=== PATIENT | male | born 1940 | race Caucasian/White ===

== ENCOUNTER 2017-07-03 14:26 | Inpatient (IN) ==
[2017-07-03] MEDS ORDERED: Ipratropium/Albuterol Neb 3 ML IH ONE (14:39)
[2017-07-03] MEDS ORDERED: methylPREDNISolone 125 MG/2 ML VIAL IVP ONE (14:39)
--- NOTE | 2017-07-03 14:41 | Emergency Department Note ---
Disposition Clinical Impression: COPD exacerbation, Pleural effusion Lung cancer Qualifiers: Laterality: unspecified laterality Lung location: unspecified part of lung Qualified Code(s): C34.90 - Malignant neoplasm of unspecified part of unspecified bronchus or lung Disposition: Admitted As Inpatient Condition: Serious Referrals: Byron Mane MD [Primary Care Provider] - Forms: ED Satisfaction Letter Time of Disposition: 15:41 Altered Mental Status HPI - General Chief Complaint: ED Altered Mental Status Stated Complaint: AMS X3days Time Seen by Provider: 07/03/17 14:31 Source: family Mode of arrival: ambulatory Limitations: altered mental status Nursing Notes Reviewed: Yes Vital Signs Reviewed: Yes - History of Present Illness HPI Narrative: 76-year-old with history of lung cancer that says now spread to his liver who apparently had some altered mental status today with increased confusion. Patient has a moist cough and his wheezing had a pulse ox of 66% at home. 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 Immediately on arrival I did discuss with the and patient whether he would want to be intubated if his respirations with declined and he indicated he would. 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 confirmed by: spouse Pain Severity: moderate Context: cancer (Anesthetic small cell lung cancer) - Related Data Home Medications Medication Instructions Recorded Confirmed Aspirin Enteric Coated [Aspirin EC] 81 mg PO DAILY 10/16/16 06/12/17 Atenolol [Tenormin] 50 mg PO DAILY 10/16/16 06/12/17 Cholecalciferol (Vitamin D3) 2,000 unit PO DAILY 10/16/16 06/12/17 [Vitamin D3] Docusate [Colace] 100 mg PO DAILY PRN 10/16/16 06/12/17 Fesoterodine Fumarate [Toviaz] 8 mg PO DAILY 10/16/16 06/12/17 Fluticasone Propionate [Flovent 1 puff IH BID 10/16/16 06/12/17 Hfa] HYDROcodone/Acet 5/325 mg [[place] 1 tab PO Q6H PRN 10/16/16 06/12/17 5-325 mg] Lisinopril [Zestril] 10 mg PO QPM 10/16/16 06/12/17 Lisinopril [Zestril] 20 mg PO QAM 10/16/16 06/12/17 Metformin HCl [Metformin HCl ER] 750 mg PO BID 10/16/16 06/12/17 Multivitamin [Multi-Day Vitamins] 1 each PO DAILY 10/16/16 06/12/17 Oxygen 2 l NS CONT 10/16/16 06/12/17 Simvastatin [Zocor] 40 mg PO QPM 10/16/16 06/12/17 hydroCHLOROthiazide 25 mg PO DAILY 10/16/16 06/12/17 [Hydrochlorothiazide] Amlodipine Besylate 2.5 mg PO DAILY 02/21/17 06/12/17 Trospium Chloride [Trospium 20 mg PO QPM 02/21/17 06/12/17 Chloride] Polyethylene Glycol 3350 [MiraLAX] 17 gm PO DAILY PRN 04/26/17 06/12/17 Potassium Chloride Elixir 10 meq PO DAILY 04/26/17 06/12/17 [Potassium Chloride] Gluc 2Kcl/Chondr/Kathy Hy/Hy AC 2 each PO DAILY 04/30/17 06/12/17 [Glucosamine & Chondroitin Cap] Previous Rx's Medication Instructions Recorded Furosemide [Lasix] 20 mg PO DAILY PRN #30 tablet 04/02/17 Levothyroxine [Synthroid] 37.5 mcg PO QAM #45 tablet 05/01/17 Loperamide [Imodium] 2 mg PO AD #60 capsule 06/12/17 Allergies Allergy/AdvReac Type Severity Reaction Status Date / Time steroids Allergy Severe Difficulty Uncoded 06/12/17 15:59 Breathing All systems ED: reviewed and negative except as stated. Constitutional: Denies: fever, chills, weakness, weight change Eyes: Denies: eye pain, eye discharge, vision change ENT ED: Denies: ear pain, throat pain, dental pain, hearing loss, epistaxis, congestion, dysphagia Cardiovascular: Denies: chest pain, palpitations, dyspnea on exertion, edema, syncope Respiratory: Reports: cough, dyspnea, wheezes. Denies: hemoptysis, stridor Gastrointestinal: Denies: abdominal pain, nausea, vomiting, diarrhea, constipation, hematemesis, melena, hematochezia Genitourinary: Denies: urgency, dysuria, frequency, hematuria Musculoskeletal: Denies: back pain, neck pain, arthralgia, myalgia Integumentary: Denies: rash, abrasion, lesions Neurological: Denies: headache, weakness, numbness, paresthesias, confusion, abnormal gait, vertigo Psychiatric: Denies: anxiety, depression, suicidal thoughts, homicidal thoughts , auditory hallucinations, visual hallucinations Endocrine: Denies: fatigue Hematological/Lymphatic: Denies: easy bleeding, easy bruising Allergic/Immunologic: Denies: facial swelling, urticaria Past Medical History - Past Medical History Medical history: Reports: arthritis, cancer, diabetes, hyperlipidemia, hypertension Surgical history: Reports: LE vascular intervention, vascular surgery Psychiatric history: Reports: no psych history - Social History Smoking Status: Former smoker Smokeless Tobacco Status: No Alcohol use: Reports: none Drug use: Reports: none Physical Exam - General General appearance: alert - Head Head exam: atraumatic, normocephalic, normal inspection - Eye Eye exam: Present: normal appearance, PERRL, EOMI - ENT ENT exam: normal exam, normal oropharynx, mucous membranes moist - Neck Neck exam: Present: normal inspection, full ROM, trachea midline - Chest Chest inspection: Present: normal inspection, symmetric chest wall rise - Respiratory Respiratory exam: Present: wheezes, prolonged expiratory phase, other (Rhonchi rales) - Cardiovascular Cardiovascular exam: Present: regular rate, normal rhythm, normal heart sounds - Abdominal Exam Abdominal exam: Present: soft, Non-Tender. Absent: tenderness, distention, guarding, rebound, rigidity - Extremities Exam Extremities exam: Present: normal inspection, full ROM. Absent: tenderness, pedal edema - Expanded Lower Extremity Exam Neurovascular/Tendon exam: Absent: motor deficit, sensory deficit, tendon deficit Gait: observed and normal - Back Exam Back exam: Present: normal inspection, full ROM. Absent: tenderness - Neurological Exam Neurological exam: Present: alert, oriented X3 - Psychiatric Psychiatric exam: Present: normal affect, normal mood - Skin Skin exam: Present: warm, dry, intact, normal color Course - Reevaluation(s) Reevaluation #1: 76-year-old male with a history of his metastatic small cell carcinoma comes in with altered mental status and difficulty breathing. Patient was treated with breathing treatments oxygen and his pulse ox came up to the mid 90s. At this point time is awake alert. Currently the family wants the patient to be a full code. Time: 16:58 - Consultations Consultation #2: Discussed with Dr. Renae cardiology who requested an echocardiogram. Time: 16:00 Consultation #3: Discussed with Samira Christian, admit Time: 17:06 Vital Signs Temperature 97.9 F 07/03/17 14:32 Pulse Rate 78 07/03/17 14:32 Respiratory Rate 16 07/03/17 14:32 Blood Pressure 133/68 07/03/17 14:32 O2 Sat by Pulse Oximetry 86 07/03/17 14:32 Temperature 97.9 F 07/03/17 14:32 Pulse Rate 73 07/03/17 15:36 Respiratory Rate 20 07/03/17 15:36 Blood Pressure 146/110 07/03/17 15:36 O2 Sat by Pulse Oximetry 97 07/03/17 15:36 Oxygen Delivery Oxygen Delivery Non Rebreather Mask Altered Mental Status - Lab Data Lab results reviewed: Yes I reviewed the patient's lab results. Result diagrams: 07/03/17 14:56 07/03/17 14:56 Lab Results 07/03/17 07/03/17 07/03/17 Range/Units 14:44 14:56 14:56 WBC 7.7 (4.3-11.1) K/mcL RBC 3.36 L (4.19-5.50) M/mcL Hgb 10.1 L (12.9-16.9) g/dL Hct 33.7 L (37.5-50.1) % MCV 100.3 H (83.0-100.0) fL MCH 30.1 (28.0-33.3) pg MCHC 30.0 L (31.6-35.5) g/dL RDW 16.1 H (11.5-14.5) % Plt Count 164 (140-400) K/mcL MPV 8.7 L (9.4-12.4) fL Immature Gran % 1.8 (0-4) % Seg Neutrophils % 84.2 % Lymphocytes % 5.7 % Monocytes % 7.9 % Eosinophils % 0.3 % Basophils % 0.1 % Neutrophils # 6.5 (1.6-8.9) K/mcL Lymphocytes # 0.4 L (0.6-4.6) K/mcL Monocytes # 0.6 (0.0-1.3) K/mcL Eosinophils # 0.0 (0.0-0.6) K/mcL Basophils # 0.0 (0.0-0.2) K/mcL Nucleated RBCs/100 WBC 0.4 H (0) /100 WBC PT 13.5 H (9.4-12.1) Seconds INR 1.2 APTT 28.8 (26.0-36.0) Seconds ABG pH 7.36 (7.32-7.45) pH Units ABG pCO2 78 H* (35-45) mmHg ABG pO2 108 H (85-104) mmHg ABG HCO3 44.1 H (21-27) mEQ/L ABG Total CO2 46.5 H (20-26) mEq/L ABG O2 Saturation 98 (95-98) % ABG Base Excess 15.3 H (-2.0 to 3.0) mEq/L Blood Gas Modality [place] Inspired O2 40 % Sodium (136-145) mEq/L Potassium (3.5-4.5) mEq/L Chloride (98-109) mEq/L Carbon Dioxide (19-29) mEq/L BUN (8-26) mg/dL Creatinine (0.72-1.25) mg/dL Est GFR ( Amer) (> 60) Est GFR (Non-Af Amer) (> 60) BUN/Creatinine Ratio (6-26) Glucose (70-99) mg/dL Calculated Osmolality (280-300) Calcium (8.6-10.8) mg/dL Total Bilirubin (0.2-1.2) mg/dL Direct Bilirubin (0.0-0.5) mg/dL Indirect Bilirubin (0.0-1.2) mg/dL AST (5-34) Units/L ALT (0-55) Units/L Alkaline Phosphatase (38-126) Units/L Troponin I (0-0.03) ng/mL Serum Total Protein (6.0-8.3) g/dL Albumin (3.5-5.0) g/dL Globulin (2.4-3.5) g/dL Albumin/Globulin Ratio (1.1-2.2) Urine Color (Yellow) Urine Clarity (Clear) Urine pH (5.0-8.0) pH Units Ur Specific [place] (1.010-1.025) Urine Protein (Neg-Trace) mg/dL Urine Glucose (UA) (Normal) mg/dL Urine Ketones (Negative) mg/dL Urine Blood (Negative) Urine Nitrite (Negative) Urine Bilirubin (Negative) Urine Urobilinogen (Normal) mg/dL Ur Leukocyte Esterase (Negative) Urine Microscopic RBC (0-3) per hpf Urine Microscopic WBC (0-3) per hpf Ur Squamous Epith Cells (None-Few) per lpf Urine Bacteria (None-Few) per hpf Hyaline Casts (None-Few) per lpf Ur Culture Indicated? (NO) Urine Opiates Screen (Ltzzxv=675) ng/mL Ur Barbiturates Screen (Kxwaru=658) ng/mL Ur Phencyclidine Scrn (Cutoff=25) ng/mL Ur Amphetamines Screen (Tuuedg=6077) ng/mL U Benzodiazepines Scrn (Jwhqep=584) ng/mL Urine Cocaine Screen (Cutoff= 300) ng/mL U Marijuana (THC) Screen (Cutoff = 50) ng/mL Ethyl Alcohol (0-10) mg/dL 07/03/17 07/03/17 07/03/17 Range/Units 14:56 14:56 16:24 WBC (4.3-11.1) K/mcL RBC (4.19-5.50) M/mcL Hgb (12.9-16.9) g/dL Hct (37.5-50.1) % MCV (83.0-100.0) fL MCH (28.0-33.3) pg MCHC (31.6-35.5) g/dL RDW (11.5-14.5) % Plt Count (140-400) K/mcL MPV (9.4-12.4) fL Immature Gran % (0-4) % Seg Neutrophils % % Lymphocytes % % Monocytes % % Eosinophils % % Basophils % % Neutrophils # (1.6-8.9) K/mcL Lymphocytes # (0.6-4.6) K/mcL Monocytes # (0.0-1.3) K/mcL Eosinophils # (0.0-0.6) K/mcL Basophils # (0.0-0.2) K/mcL Nucleated RBCs/100 WBC (0) /100 WBC PT (9.4-12.1) Seconds INR APTT (26.0-36.0) Seconds ABG pH (7.32-7.45) pH Units ABG pCO2 (35-45) mmHg ABG pO2 (85-104) mmHg ABG HCO3 (21-27) mEQ/L ABG Total CO2 (20-26) mEq/L ABG O2 Saturation (95-98) % ABG Base Excess (-2.0 to 3.0) mEq/L Blood Gas Modality Inspired O2 % Sodium 143 (136-145) mEq/L Potassium 3.5 (3.5-4.5) mEq/L Chloride 94 L (98-109) mEq/L Carbon Dioxide 42 H* (19-29) mEq/L BUN 30 H (8-26) mg/dL Creatinine 1.11 (0.72-1.25) mg/dL Est GFR ( Amer) > 60 (> 60) Est GFR (Non-Af Amer) > 60 (> 60) BUN/Creatinine Ratio 27 H (6-26) Glucose 176 H (70-99) mg/dL Calculated Osmolality 306 H (280-300) Calcium 9.6 (8.6-10.8) mg/dL Total Bilirubin 0.5 (0.2-1.2) mg/dL Direct Bilirubin 0.3 (0.0-0.5) mg/dL Indirect Bilirubin 0.2 (0.0-1.2) mg/dL AST 34 (5-34) Units/L ALT 23 (0-55) Units/L Alkaline Phosphatase 112 (38-126) Units/L Troponin I 0.36 H* (0-0.03) ng/mL Serum Total Protein 7.1 (6.0-8.3) g/dL Albumin 2.7 L (3.5-5.0) g/dL Globulin 4.4 H (2.4-3.5) g/dL Albumin/Globulin Ratio 0.6 L (1.1-2.2) Urine Color Yellow (Yellow) Urine Clarity Clear (Clear) Urine pH 6.0 (5.0-8.0) pH Units Ur Specific [place] 1.021 (1.010-1.025) Urine Protein 30 H (Neg-Trace) mg/dL Urine Glucose (UA) Normal (Normal) mg/dL Urine Ketones Negative (Negative) mg/dL Urine Blood Negative (Negative) Urine Nitrite Negative (Negative) Urine Bilirubin Negative (Negative) Urine Urobilinogen Normal (Normal) mg/dL Ur Leukocyte Esterase Negative (Negative) Urine Microscopic RBC 0-3 (0-3) per hpf Urine Microscopic WBC 0-3 (0-3) per hpf Ur Squamous Epith Cells Many H (None-Few) per lpf Urine Bacteria None Seen (None-Few) per hpf Hyaline Casts None Seen (None-Few) per lpf Ur Culture Indicated? NO (NO) Urine Opiates Screen (Vwrwvp=811) ng/mL Ur Barbiturates Screen (Sgpvlk=840) ng/mL Ur Phencyclidine Scrn (Cutoff=25) ng/mL Ur Amphetamines Screen (Kdnhuu=8494) ng/mL U Benzodiazepines Scrn (Mmubdy=126) ng/mL Urine Cocaine Screen (Cutoff= 300) ng/mL U Marijuana (THC) Screen (Cutoff = 50) ng/mL Ethyl Alcohol < 10 (0-10) mg/dL 07/03/17 Range/Units 16:24 WBC (4.3-11.1) K/mcL RBC (4.19-5.50) M/mcL Hgb (12.9-16.9) g/dL Hct (37.5-50.1) % MCV (83.0-100.0) fL MCH (28.0-33.3) pg MCHC (31.6-35.5) g/dL RDW (11.5-14.5) % Plt Count (140-400) K/mcL MPV (9.4-12.4) fL Immature Gran % (0-4) % Seg Neutrophils % % Lymphocytes % % Monocytes % % Eosinophils % % Basophils % % Neutrophils # (1.6-8.9) K/mcL Lymphocytes # (0.6-4.6) K/mcL Monocytes # (0.0-1.3) K/mcL Eosinophils # (0.0-0.6) K/mcL Basophils # (0.0-0.2) K/mcL Nucleated RBCs/100 WBC (0) /100 WBC PT (9.4-12.1) Seconds INR APTT (26.0-36.0) Seconds ABG pH (7.32-7.45) pH Units ABG pCO2 (35-45) mmHg ABG pO2 (85-104) mmHg ABG HCO3 (21-27) mEQ/L ABG Total CO2 (20-26) mEq/L ABG O2 Saturation (95-98) % ABG Base Excess (-2.0 to 3.0) mEq/L Blood Gas Modality Inspired O2 % Sodium (136-145) mEq/L Potassium (3.5-4.5) mEq/L Chloride (98-109) mEq/L Carbon Dioxide (19-29) mEq/L BUN (8-26) mg/dL Creatinine (0.72-1.25) mg/dL Est GFR ( Amer) (> 60) Est GFR (Non-Af Amer) (> 60) BUN/Creatinine Ratio (6-26) Glucose (70-99) mg/dL Calculated Osmolality (280-300) Calcium (8.6-10.8) mg/dL Total Bilirubin (0.2-1.2) mg/dL Direct Bilirubin (0.0-0.5) mg/dL Indirect Bilirubin (0.0-1.2) mg/dL AST (5-34) Units/L ALT (0-55) Units/L Alkaline Phosphatase (38-126) Units/L Troponin I (0-0.03) ng/mL Serum Total Protein (6.0-8.3) g/dL Albumin (3.5-5.0) g/dL Globulin (2.4-3.5) g/dL Albumin/Globulin Ratio (1.1-2.2) Urine Color (Yellow) Urine Clarity (Clear) Urine pH (5.0-8.0) pH Units Ur Specific [place] (1.010-1.025) Urine Protein (Neg-Trace) mg/dL Urine Glucose (UA) (Normal) mg/dL Urine Ketones (Negative) mg/dL Urine Blood (Negative) Urine Nitrite (Negative) Urine Bilirubin (Negative) Urine Urobilinogen (Normal) mg/dL Ur Leukocyte Esterase (Negative) Urine Microscopic RBC (0-3) per hpf Urine Microscopic WBC (0-3) per hpf Ur Squamous Epith Cells (None-Few) per lpf Urine Bacteria (None-Few) per hpf Hyaline Casts (None-Few) per lpf Ur Culture Indicated? (NO) Urine Opiates Screen Positive H (Vzgwap=576) ng/mL Ur Barbiturates Screen Negative (Fftqqf=732) ng/mL Ur Phencyclidine Scrn Negative (Cutoff=25) ng/mL Ur Amphetamines Screen Negative (Objsbs=9352) ng/mL U Benzodiazepines Scrn Negative (Xjkisk=468) ng/mL Urine Cocaine Screen Negative (Cutoff= 300) ng/mL U Marijuana (THC) Screen Negative (Cutoff = 50) ng/mL Ethyl Alcohol (0-10) mg/dL - EKG Data EKG attestation: Yes I reviewed and interpreted this EKG. EKG shows normal: sinus rhythm Rate: normal Rhythm: NSR T wave inversions: v5, v6 When compared to previous EKG there are: changes noted (New T-wave inversion V5 and V6) Interpretation: no acute changes TPA Checklist - LKW: 3-4.5 hrs Add. Warnings/Precautions Patient/family understanding: The patient/family members have been counseled and understood the risk, benefit , and alternatives of treatment.
[2017-07-03 14:55] LABS: ABG Base Excess 15.3 mEq/L (-2.0 to 3.0); ABG HCO3 44.1 mEQ/L (21-27); ABG Oxygen Saturation 98 % (95-98); ABG PH 7.36 pH Units (7.32-7.45); ABG PO2 108 mmHg (85-104); ABG TCO2 46.5 mEq/L (20-26)
[2017-07-03 14:56] LABS: ABG PCO2 78 mmHg (35-45)
[2017-07-03 14:57] LABS: Blood Gas FiO2 40 %
[2017-07-03 15:06] LABS: Basophils % 0.1 %; Eosinophils % 0.3 %; Hematocrit 33.7 % (37.5-50.1); Hemoglobin 10.1 g/dL (12.9-16.9); Immature Granulocytes % 1.8 % (0-4); Lymphocytes # 0.4 K/mcL (0.6-4.6); Lymphocytes % 5.7 %; Mean Corpuscular Hemoglobin 30.1 pg (28.0-33.3); Mean Corpuscular Volume 100.3 fL (83.0-100.0); Mean Platelet Volume 8.7 fL (9.4-12.4); Monocytes # 0.6 K/mcL (0.0-1.3); Monocytes % 7.9 %; Neutrophils # 6.5 K/mcL (1.6-8.9); Nucleated Red Blood Cells 0.4 /100 WBC (0); Platelet Count 164 K/mcL (140-400); Red Blood Count 3.36 M/mcL (4.19-5.50); Red Cell Distribution Width 16.1 % (11.5-14.5); Segmented Neutrophils % 84.2 %
[2017-07-03 15:11] LABS: INR 1.2; Prothrombin Time 13.5 Seconds (9.4-12.1)
[2017-07-03 15:13] LABS: Activated Partial Thrombo Time 28.8 Seconds (26.0-36.0)
[2017-07-03 15:20] LABS: Alanine Aminotransferase 23 Units/L (0-55); Albumin 2.7 g/dL (3.5-5.0); Albumin/Globulin Ratio 0.6 (1.1-2.2); Alkaline Phosphatase 112 Units/L (38-126); Aspartate Amino Transferase 34 Units/L (5-34); BUN/Creatinine Ratio 27 (6-26); Bilirubin,Direct 0.3 mg/dL (0.0-0.5); Bilirubin,Indirect 0.2 mg/dL (0.0-1.2); Bilirubin,Total 0.5 mg/dL (0.2-1.2); Blood Urea Nitrogen 30 mg/dL (8-26); Calcium 9.6 mg/dL (8.6-10.8); Chloride 94 mEq/L (98-109); Globulin 4.4 g/dL (2.4-3.5); Glucose 176 mg/dL (70-99); Osmolality,Calculated 306 (280-300); Potassium 3.5 mEq/L (3.5-4.5); Sodium 143 mEq/L (136-145); Total Protein 7.1 g/dL (6.0-8.3); eGFR For African Americans > 60 (> 60); eGFR For Non-African Americans > 60 (> 60)
[2017-07-03 15:21] LABS: Carbon Dioxide 42 mEq/L (19-29)
[2017-07-03 15:33] LABS: Ethanol < 10 mg/dL (0-10)
[2017-07-03 16:34] LABS: Bilirubin,Urine Negative (Negative); Blood,Urine Negative (Negative); Clarity,Urine Clear (Clear); Color,Urine Yellow (Yellow); Glucose,Urine (UA) Normal (Normal); Ketones,Urine Negative (Negative); Leukocyte Esterase,Urine Negative (Negative); Nitrite,Urine Negative (Negative); Protein,Urine 30 mg/dL (Neg-Trace); Specific Gravity,Urine 1.021 (1.010-1.025); Urobilinogen,Urine Normal (Normal)
[2017-07-03 16:35] LABS: Bacteria,Urine None Seen per hpf (None-Few); Hyaline Casts,Urine None Seen per lpf (None-Few); RBC,Urine 0-3 per hpf (0-3); Squamous Epithelial Cell,Urine Many per lpf (None-Few); WBC,Urine 0-3 per hpf (0-3)
[2017-07-03 16:40] LABS: Barbiturate Screen,Urine Negative ng/mL (Cutoff=200); Benzodiazepines Screen,Urine Negative ng/mL (Cutoff=200); Cannabinoid Screen,Urine Negative ng/mL (Cutoff = 50); Cocaine Screen,Urine Negative ng/mL (Cutoff= 300); Opiate Screen,Urine Positive ng/mL (Cutoff=300); Phencyclidine Screen,Urine Negative ng/mL (Cutoff=25)
[2017-07-03 17:05] LABS: Amphetamine Screen,Urine Negative ng/mL (Cutoff=1000)
[2017-07-03] MEDS ORDERED: *HR* LORazepam 2 MG/ML VIAL IVP ONE (19:40)
[2017-07-03] MEDS ORDERED: *HR* LORazepam 2 MG/ML VIAL ONE (19:42)
[2017-07-03] MEDS ORDERED: Ondansetron 4 MG/2 ML VIAL IVP PRN (20:16)
[2017-07-03] MEDS ORDERED: *HR* Morphine 2 MG/ML SYRINGE IVP PRN (20:16)
[2017-07-03] MEDS ORDERED: *HR* HYDROcodone/Acet 5/325 mg TABLET PO PRN (20:16)
[2017-07-03] MEDS ORDERED: Naloxone 0.4 MG/ML INJ IVP PRN (20:16)
[2017-07-03] MEDS ORDERED: Acetaminophen 325 MG TABLET PO PRN (20:16)
[2017-07-03] MEDS ORDERED: Furosemide 20 MG TABLET PO PRN (20:23)
[2017-07-03] MEDS ORDERED: *HR* LORazepam 2 MG/ML VIAL IVP PRN (20:32)
[2017-07-03] MEDS ORDERED: D5% in Water 1,000 ML IVC PRN (20:39)
[2017-07-03] MEDS ORDERED: *HR* Dextrose 50 % in Water (Syg) 50 ML SYRINGE IVP PRN (20:39)
[2017-07-03] MEDS ORDERED: Dextrose Gel 15 GM PO PRN ×2 (20:39)
[2017-07-03] MEDS ORDERED: Insulin LISPRO 300 UNITS/3 ML VIAL SQ SCH (21:00)
--- NOTE | 2017-07-03 21:11 | Internal Med History&Physical ---
<CarmenzaHumza wright - Last Filed: 07/03/17 22:22> Date of Encounter: 07/03/17 Time of Encounter: 19:45 Assessment and Plan (1) Altered mental status Current visit: Yes Status: Acute Patient presents with acute altered mental status over the past 24-48 hours according to his family. Patient has metastatic lung cancer and large right pleural effusion according to 1-View CXR today. Patient's current ABG values are : pCO2 = 78, pO2 = 108, HCO3 = 44.1, Total CO2 = 46.5, ABG Base Excess = 15.3, pH = 7.36, O2 saturation = 98. During examination, patient became agitated and repeatedly took his O2 face mask off which resulted in his SpO2 dropping to the 70s. Patient was given 0.5 mg of IVP Ativan in the ED and nasal cannula was placed successfully bring the patient's SpO2 up to 95%. Patient's family reports that he will likely become agitated overnight and try to get out of bed and/or remove IVs or tubing. Patient became agitated once he was brought to the floor and would not keep his O2 nasal cannula in place. BiPap ordered to help improve patient's ABGs along with sof restraints for the patient's UEs bilaterally so as not to interfere with patient's necessary treatment and oxygenation. Patient's family was present when restraints were discussed and ordered and reported that the patient had needed restraints in the past for the same type of behavior. Sitter ordered as well. Patient's UEs to be checked regularly to prevent skin breakdown or trauma from the soft restraints. Falls/ safety precautions ordered. Ativan ordered IVP 0.5 mg Q6 PRN and will be changed to shorter intervals if needed. Qualifiers: Altered mental status type: disorientation Qualified Code(s): R41.0 - Disorientation, unspecified (2) Agitation Current visit: Yes Status: Acute Patient is experiencing acute agitation due to AMS related to hypoxia and increased levels of arterial blood gases. Ativan ordered 0.5 mg Q6 PRN. Soft restraints ordered for patient's UEs bilaterally due to agitation and pulling off O2/Bipap and prevent IV lines from being removed. Patient's family was present when restraints were discussed and ordered and reported that the patient had needed restraints in the past for the same type of behavior. We will monitor patient and extremities for signs of skin breakdown or trauma regularly. Sitter ordered. (3) Hypoxia Current visit: Yes Status: Acute Patient presents with acute hypoxia related to current pleural effusion and small cell lung cancer. Patient is currently experiencing altered mental status due to hypoxia. Supplemental O2 ordered with continuous SpO2 monitoring, DuoNebs ordered Q4, BiPap ordered for current ABG status. (4) Pleural effusion Current visit: Yes Status: Acute Patient presents with acute pleural effusion most likely related to his current lung cancer. 1-View CXR today shows increased moderate to large right pleural effusion with associated atelectasis or consolidation and right greater than left diffuse interstitial thickening. Known pulmonary nodules are not appreciated on this study. Supplemental O2 ordered as well as BiPap. DuoNebs ordered Q4 scheduled and will continue patient's PO hyrochlorothiazide and Lasix. Monitor patient's I&O and daily weight. (5) Elevated troponin Current visit: Yes Status: Acute Patient presents with initial troponin level 0.36. Will trend patient's troponins 2 and patient placed on continuous cardiac telemetry with order for echocardiogram per cardiology. EKG ordered. 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 Long-term plan of care and goals of care discussed with patient's family with recommendation for social work consult to discuss POA issues as well as palliative care and hospice consult. Patient's son is amenable to palliative/hospice care but is currently not willing to discuss at this time. 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 CT of the head/brain without contrast today showed no acute abnormality. MRI of the head/brain ordered to rule out metastases of cancer to the brain. Qualifiers: Laterality: unspecified laterality Qualified Code(s): C34.90 - Malignant neoplasm of unspecified part of unspecified bronchus or lung (8) Diabetes Current visit: Yes Status: Chronic Patient presents with history of chronic diabetes controlled by oral anti- hyperglycemics. We will hold patient's oral meds in order low-dose correction insulin sliding scale with hypoglycemic recall. Blood glucose monitoring before meals at bedtime. A1c ordered. Qualifiers: Diabetes mellitus type: type 2 Diabetes mellitus complication status: without complication Diabetes mellitus long-term insulin use: without exterminator helper use Qualified Code(s): E11.9 - Type 2 diabetes mellitus without complications (9) HTN (hypertension) Current visit: Yes Status: Chronic Patient presents with history of chronic hypertension. Will monitor patient in vital signs and continue patient's lisinopril, amlodipine, and atenolol if able to take by mouth meds. Qualifiers: Hypertension type: essential hypertension Qualified Code(s): I10 - Essential (primary) hypertension (10) HLD (hyperlipidemia) Current visit: Yes Status: Chronic Patient presents with history of chronic hyperlipidemia. Lipid panel ordered. Will continue patient's Zocor if he is able to take by mouth meds. Qualifiers: Hyperlipidemia type: pure hypercholesterolemia Qualified Code(s): E78.00 - Pure hypercholesterolemia, unspecified; E78.0 - Pure hypercholesterolemia (11) DVT prophylaxis Current visit: Yes Status: Acute Patient to be placed on DVT prophylaxis due to current admission protocol and bed rest status. Due to patient's altered mental status and agitation, bilateral SCDs to be placed on patient's LEs. Internal Medicine - H&P: HPI Chief complaint: Altered Mental Status/Hypoxia Admitted From: Emergency Dept Plans for Post Hospital Care: Home History of present illness: Mr. Kendall is a 76 year old male who presents from the ED with chief complaint of altered mental status due to hypoxia. Patient is unable to provide any medical history or information due to his current AMS and simply says "yeah" or okay" in response to questions. Patient's and son provide all pertinent information. The family states that the patient's confusion became worse over the past 24-48 hours due to his not wanting to wear his home O2. Upon admission , his SpO2 was 66%. The patient's family states that Mr. Kendall was diagnosed with small cell carcinoma which they have recently found to have metastasized to his liver. Patient has a juicy cough and has bilateral wheezes in all lobes on examination. 1-View CXR today shows increased moderate to large right pleural effusion with associated atelectasis or consolidation, right greater than left diffuse interstitial thickening, and known pulmonary nodules are not appreciated on this study. Also during examination, patient was agitated with the O2 face mask that was placed on him and repeatedly took the mask off which would make his O2 saturation reduce to the 70s. Mr. Kendall was given 0.5 mg Ativan IVP which settled him and a nasal cannula was placed, bringing his SpO2 up to 95%. Discussed SW consult for POA questions which they expressed interest in as well as Palliative Care consult which the son was amenable towards but the patient's was not. Mr. Kendall's medical history includes arthritis, metastatic lung cancer, diabetes controlled with oral anti-hyperglycemics, hyperlipidemia, and hypertension. Patient is a former smoker who smoked 1 PPD according to the family, but quit many years ago. Patient is at high risk for respiratory decline/failure based on his current ABGs, symptoms, AMS, and lung cancer prognosis/co-morbidities and will be placed as inpatient status with orders for continuous cardiac telemetry, supplemental O2 with titration if SpO2 <92%, continuous SpO2 monitoring, cardiology consult placed in the ED with recommendation for an echocardiogram which has been ordered, DuoNebs Q4 scheduled, and falls/safety precautions. Patient is to be NPO with bedside swallow evaluation to determine if he is able to take his medications PO. Intubation was discussed with the family due to the patient's hypoxia and O2 needs. Bipap has been ordered, but if patient is unwilling to wear BiPap then the family is agreeable to intubation. Patient became agitated once he was brought to the unit and orders for soft restraints for UEs bilaterally were placed in order to prevent patient from pulling out IV line, O2/BiPap off, or attempting to climb out of bed without assistance. Patient's family was present when restraints were discussed and ordered and reported that the patient had needed restraints in the past for the same type of behavior. Sitter ordered as well. Patient to be monitored closely for signs of increasing cardiac and/or respiratory distress as well as for skin breakdown/trauma from soft restraints. Time spent with patient >40 minutes. Past Med Surg Social Fam HX - Past Medical History Source: obtained from family Medical history: arthritis, cancer (Lung cancer with metastasis to the liver), diabetes, hyperlipidemia, hypertension Psychiatric history: no psych history - Past Surgical History Surgical History: LE vascular intervention, vascular surgery - Social History Smoking Status: Former smoker Packs per day: 1 PPD - family reports he quit many years ago Smokeless Tobacco Status: No Alcohol use: none, occasionally Drug use: none Occupational status: previously employed Current living situation: Home, With Family Activity Level: Independent ambulation, Uses cane/walker Recent Out of Country Travel Within the Last 8 Weeks: No Exposure or Possible Exposure to Illness During Travel: No - Family History Father Adopted: No Race: Family Member Ethnicity: Non- Living Status: Age at : 67 Cause of : Lung cancer Hx Family Cardiac Disorders: Yes (HD, NM) Hx Family Cancer: Yes (Lung) Mother Race: Family Member Ethnicity: Non- Living Status: Age at : 70 Cause of : Pancreatic cancer Hx Family Cancer: Yes (Pancreatic) Hx Family Endocrine Disorder: Yes (DM) Internal Medicine - H&P: Meds Aspirin Enteric Coated [Aspirin EC] 81 mg PO DAILY 10/16/16 [History] Atenolol [Tenormin] 50 mg PO DAILY 10/16/16 [History] Cholecalciferol (Vitamin D3) [Vitamin D3] 2,000 unit PO DAILY 10/16/16 [History] Docusate [Colace] 100 mg PO DAILY PRN 10/16/16 [History] Fesoterodine Fumarate [Toviaz] 8 mg PO DAILY 10/16/16 [History] Fluticasone Propionate [Flovent Hfa] 1 puff IH BID 10/16/16 [History] HYDROcodone/Acet 5/325 mg [[place] 5-325 mg] 1 tab PO Q6H PRN 10/16/16 [History] Lisinopril [Zestril] 10 mg PO QPM 10/16/16 [History] Lisinopril [Zestril] 20 mg PO QAM 10/16/16 [History] Metformin HCl [Metformin HCl ER] 750 mg PO BID 10/16/16 [History] Multivitamin [Multi-Day Vitamins] 1 each PO DAILY 10/16/16 [History] Oxygen 2 l NS CONT 10/16/16 [History] Simvastatin [Zocor] 40 mg PO QPM 10/16/16 [History] hydroCHLOROthiazide [Hydrochlorothiazide] 25 mg PO DAILY 10/16/16 [History] Amlodipine Besylate 2.5 mg PO DAILY 02/21/17 [History] Trospium Chloride [Trospium Chloride] 20 mg PO QPM 02/21/17 [History] Furosemide [Lasix] 20 mg PO DAILY PRN #30 tablet 04/02/17 [Rx] Polyethylene Glycol 3350 [MiraLAX] 17 gm PO DAILY PRN 04/26/17 [History] Potassium Chloride Elixir [Potassium Chloride] 10 meq PO DAILY 04/26/17 [History ] Gluc 2Kcl/Chondr/Kathy Hy/Hy AC [Glucosamine & Chondroitin Cap] 2 each PO DAILY 04/30/17 [History] Levothyroxine [Synthroid] 37.5 mcg PO QAM #45 tablet 05/01/17 [Rx] Loperamide [Imodium] 2 mg PO AD #60 capsule 06/12/17 [Rx] Allergies steroids Allergy (Severe, Uncoded 06/12/17 15:59) Difficulty Breathing ROS unobtainable: due to mental status All Systems PM: A 10-system review of systems was performed and is negative for pertinent findings except as documented above in the HPI. - Constitutional Vitals: Temp Pulse Resp BP Pulse Ox 97.9 F 62 22 147/95 100 07/03/17 14:32 07/03/17 17:36 07/03/17 19:36 07/03/17 19:36 07/03/17 17:36 General appearance: Present: A&O X 0, obese, severe distress (Respiratory) - Head Head exam: Present: atraumatic, normocephalic - Eye Eye exam: Present: PERRL, conjuntiva pink, sclera anicteric Pupils: Present: PERRL - ENT ENT exam: Present: normal exam, normal external ear exam - Neck Neck exam general surgery: Present: normal inspection, supple, trachea midline - Respiratory Respiratory exam: Present: accessory muscle use, decreased breath sounds, respiratory distress, wheezes - Cardiovascular Cardiovascular exam: Present: RRR, +S1, +S2. Absent: diastolic murmur, gallop, rubs, systolic murmur - GI/Abdominal GI/Abdominal exam: Present: normal bowel sounds, soft, no peritoneal signs. Absent: distended, tenderness - Rectal Rectal exam: Present: deferred - Additional comments: exam deferred. - Extremities Exam Extremities exam: Present: warm, radial pulses palpable and symmetrical. Absent : calf tenderness, cyanotic, pedal edema Additional comments: On examination, patient's LEs are erythematous with some scabbing due to areas that seep fluid according to the patient's family. Currently, there is no discharge and the areas appear to healing with scabbing present. - Back Exam Back exam: Present: normal inspection - Neurological Exam Neurological exam: Present: altered, reflexes normal - Psychiatric Psychiatric exam: Present: anxious - Skin Skin exam: Present: dry, erythema (LEs bilaterally), intact, warm Internal Med - H&P Results - Labs CBC & Chem 7: 07/03/17 14:56 07/03/17 14:56 - EKG Data EKG shows normal: sinus rhythm - EKG Data Prior EKG available for review: yes Interpretation IM: suggestive of ischemia EKG comments: 07/03/17 22:18 EKG dated 10/29/16 shows sinus rhythm, IVCD, and St-T changes that are non- specific. EKG dated 07/03/17 shows sinus rhythm with possible inferior myocardial infarction of indeterminate age, moderate T-wave abnormality. Consider lateral ischemia. - Diagnostic Studies Chest x-ray Additional comments: Impressions Chest X-Ray 07/03/17 14:39 IMPRESSION: Increased moderate to large right pleural effusion with associated atelectasis or consolidation. Right greater than left diffuse interstitial thickening. Known pulmonary nodules are not appreciated on this study. D/ / 07/03/2017 16:28:45 Nacho Harrell MD / [place] Interpreting Provider: Nacho Harrell MD CT scan - head Additional comments: Impressions Head CT 07/03/17 14:39 IMPRESSION: No acute intracranial abnormality. D/ / Ino Matrin MD / Ino Martin MD Interpreting Provider: Ino Martin MD <Coty Escoto - Last Filed: 07/04/17 00:37> Date of Encounter: 07/04/17 Internal Medicine - H&P: HPI History of present illness: Mr. Kendall is a 76 year old male All Systems PM: A 10-system review of systems was performed and is negative for pertinent findings except as documented above in the HPI. - Constitutional Vitals: Temp Pulse Resp BP Pulse Ox 97.4 F L 98 27 137/66 90 07/03/17 23:25 07/03/17 23:25 07/03/17 23:55 07/03/17 23:25 07/03/17 23:55 Internal Med - H&P Results - Labs CBC & Chem 7: 07/03/17 14:56 07/03/17 14:56 Labs: Cardiac Enzymes 07/03/17 Range/Units 22:40 Troponin I 0.29 H* (0-0.03) ng/mL - Attending Attestation I saw and examined pt. I have discussed with SENIOR COMMUNICATIONS ENGINEER regarding management plan. Agree with documentation. Pt has small cell lung cancer with liver metastasis. Present with AMS for 5 days , progressively worse. Pt present with hypoxia and hypercapnia. PH 7.36, probably chronic hypercapnia. His AMS is probably due to hypoxia, hypercapnia, brain metastasis, etc. Less likely hepatoencephalopathy as AST and ALT WNL. Pt needs high level O2 now. Will place pt on BiPAP. Pt is still full code. If hypoxia persist, may need intubation. D/W pt's son and , verbalized understanding and agree with intubation if needede. Prognosis is guarding.
[2017-07-03] MEDS ORDERED: 0.9 % Sodium Chloride 1,000 ML IVC SCH (21:30)
[2017-07-04] MEDS ORDERED: Ipratropium/Albuterol Neb 3 ML IH SCH
[2017-07-04] MEDS ORDERED: 0.9 % Sodium Chloride 1,000 ML IVC SCH (01:00)
[2017-07-04] MEDS ORDERED: Insulin LISPRO 300 UNITS/3 ML VIAL SQ SCH ×2 (02:45→07:30)
[2017-07-04] MEDS ORDERED: FentaNYL (PF) 1,000 MCG in 0.9 % Sodium Chloride 80 ML IVC SCH (03:00)
--- NOTE | 2017-07-04 03:01 | Event Note ---
Date of Encounter: 07/04/17 Time of Encounter: 02:00 Pt has progressive hypoxia even on BiPAP. FiO2 has to be increased to 100% and SpO2 keeping at 80s. RR increased from 20 to 40 and pt seems more agitated and not tolerate BiPAP. Pt was transferred to ICU and was intubated in ICU with versed 10mg, rocuronium 50mg. Intubation is uneventfully, vital signs being stable during whole process. Will order CXR to confirm position. Tried to inform pt's family by 2A RN but cannot get through, message left.
--- NOTE | 2017-07-04 03:11 | Event Note ---
Date of Encounter: 07/04/17 Time of Encounter: 03:10 Patient transferred from 2A to ICU due to acute respiratory failure with hypercapnia and hypoxia. Patient has hx of metastatic lung cancer, presented to ED today due to AMS, dyspnea, found to have large right sided pleural effusion on CXR. He was being trialed on BIPAP with benzo for sedation/ compliance with BIPAP. Patient continued to have increased work of breathing on BIPAP, RR in 40s, O2 sat in 80s, becoming increasingly agitated, coarse breath sounds bilaterally. He was transferred to ICU by Dr. Escoto and then intubated by Dr. Escoto. Sats after intubation are 98% on 100% FiO2, 5 PEEP, RR 12, TV 550, VC+. Vitals stable, started on fentanyl, propofol. Fluids discontinued. CT chest on 06/06 showed metastatic disease with Large loculated right subpulmonic pleural effusion. Will consult pulmonology. Consider repeat CT chest in the morning along with possible consult to IR for drainage of right pleural effusion depending on pulmonology recs.
[2017-07-04] MEDS ORDERED: D5% in Water 1,000 ML IVC PRN (03:28)
[2017-07-04] MEDS ORDERED: Ondansetron 4 MG/2 ML VIAL IVP PRN (03:28)
[2017-07-04] MEDS ORDERED: *HR* HYDROcodone/Acet 5/325 mg TABLET PO PRN (03:28)
[2017-07-04] MEDS ORDERED: *HR* Morphine 2 MG/ML SYRINGE IVP PRN (03:28)
[2017-07-04] MEDS ORDERED: *HR* Dextrose 50 % in Water (Syg) 50 ML SYRINGE IVP PRN (03:28)
[2017-07-04] MEDS ORDERED: Dextrose Gel 15 GM PO PRN ×2 (03:28)
[2017-07-04] MEDS ORDERED: Furosemide 20 MG TABLET PO PRN (03:28)
[2017-07-04] MEDS ORDERED: Acetaminophen 325 MG TABLET PO PRN (03:28)
[2017-07-04] MEDS ORDERED: Naloxone 0.4 MG/ML INJ IVP PRN (03:28)
[2017-07-04] MEDS ORDERED: *HR* LORazepam 2 MG/ML VIAL IVP PRN (03:28)
[2017-07-04] MEDS ORDERED: Furosemide 40 MG/4 ML VIAL IVP ONE (03:41)
[2017-07-04] MEDS: Ipratropium/Albuterol Neb 3 ML IH SCH ×6 (04:19→23:50)
[2017-07-04] MEDS: Insulin LISPRO 300 UNITS/3 ML VIAL SQ SCH ×5 (04:27→21:10)
[2017-07-04 04:34] LABS: Basophils % 0.1 %; Eosinophils % 0.1 %; Hematocrit 34.6 % (37.5-50.1); Hemoglobin 10.3 g/dL (12.9-16.9); Lymphocytes # 0.3 K/mcL (0.6-4.6); Lymphocytes % 2.4 %; Mean Corpuscular HGB Conc 29.8 g/dL (31.6-35.5); Mean Corpuscular Hemoglobin 30.3 pg (28.0-33.3); Mean Corpuscular Volume 101.8 fL (83.0-100.0); Monocytes # 0.6 K/mcL (0.0-1.3); Monocytes % 5.6 %; Neutrophils # 9.7 K/mcL (1.6-8.9); Nucleated Red Blood Cells 0.2 /100 WBC (0); Platelet Count 146 K/mcL (140-400); Red Cell Distribution Width 16.6 % (11.5-14.5); Segmented Neutrophils % 90.8 %
[2017-07-04 04:47] LABS: Hemoglobin A1C 6.6 %
[2017-07-04 04:51] LABS: BUN/Creatinine Ratio 33 (6-26); Blood Urea Nitrogen 34 mg/dL (8-26); Calcium 9.4 mg/dL (8.6-10.8); Chloride 96 mEq/L (98-109); Cholesterol 151 mg/dL (< 200); Glucose 165 mg/dL (70-99); HDL Cholesterol 38 mg/dL (40-59); LDL Cholesterol,Calculated 87 mg/dL (0-99); Magnesium 1.2 mg/dL (1.6-2.6); Osmolality,Calculated 309 (280-300); Potassium 3.5 mEq/L (3.5-4.5); Sodium 144 mEq/L (136-145); Triglycerides 129 mg/dL (< 150); eGFR For African Americans > 60 (> 60); eGFR For Non-African Americans > 60 (> 60)
[2017-07-04 04:55] LABS: Carbon Dioxide 40 mEq/L (19-29)
--- NOTE | 2017-07-04 05:20 | Event Note ---
Date of Encounter: 07/04/17 Time of Encounter: 05:00 CXR shows worsen consolidation. Consider pneumonia. Will start vanco and cefepime and treat pt as healthcare associated pneumonia.
[2017-07-04 05:30] LABS: ABG Base Excess 17.4 mEq/L (-2.0 to 3.0); ABG HCO3 45.6 mEQ/L (21-27); ABG Oxygen Saturation 91 % (95-98); ABG PH 7.38 pH Units (7.32-7.45); ABG PO2 62 mmHg (85-104)
[2017-07-04 05:38] LABS: Blood Gas FiO2 80 %
[2017-07-04 05:39] LABS: ABG PCO2 77 mmHg (35-45)
[2017-07-04] MEDS ORDERED: *HR* Heparin 5,000 UNIT/ML VIAL SQ SCH ×2 (06:00)
[2017-07-04] MEDS ORDERED: Vancomycin 1,500 MG in D5% in Water 250 ML IVPB SCH (06:00)
[2017-07-04] MEDS: Vancomycin 1,500 MG in D5% in Water 250 ML IVPB SCH ×2 (06:12→18:11)
[2017-07-04] MEDS: Pantoprazole 40 MG VIAL IVP SCH (06:12)
[2017-07-04] MEDS: Levothyroxine 25 MCG TABLET PO SCH (06:12)
[2017-07-04] MEDS ORDERED: Levothyroxine 25 MCG TABLET PO SCH (06:30)
[2017-07-04] MEDS ORDERED: Pantoprazole 40 MG VIAL IVP SCH (06:30)
[2017-07-04] MEDS: Piperacillin/Tazobactam 3.375 GM in D5% in Water (Mini-Bag+) 100 ML IVPB SCH ×2 (07:52→16:15)
[2017-07-04] MEDS: Chlorhexidine Rinse 15 ML MOUTHWASH MM SCH ×2 (07:54→21:11)
[2017-07-04] MEDS: Lacri-Lube 3.5 GM TUBE BOTH EYES SCH ×4 (07:58→21:11)
[2017-07-04] MEDS ORDERED: Cefepime HCl 2,000 MG in D5% in Water (Mini-Bag+) 100 ML IVPB SCH (08:00)
[2017-07-04] MEDS ORDERED: Perflutren Lipid Microsphere 1.3 ML in 0.9 % Sodium Chloride 8.7 ML IVP ONE (08:15)
[2017-07-04] MEDS ORDERED: *HR* Rocuronium Bromide 50 MG/5 ML VIAL IVC ONE (08:24)
[2017-07-04] MEDS ORDERED: *HR* Midazolam HCl 5 MG/5 ML VIAL IVP ONE (08:24)
[2017-07-04] MEDS ORDERED: *HR* Midazolam HCl 2 MG/2 ML VIAL IV ONE (08:24)
[2017-07-04 08:28] LABS: ABG Base Excess 16.9 mEq/L (-2.0 to 3.0); ABG HCO3 44.1 mEQ/L (21-27); ABG Oxygen Saturation 91 % (95-98); ABG PCO2 68 mmHg (35-45); ABG PH 7.42 pH Units (7.32-7.45); ABG PO2 61 mmHg (85-104); ABG TCO2 46.2 mEq/L (20-26)
[2017-07-04 08:29] LABS: Blood Gas FiO2 70 %
[2017-07-04] MEDS: Potassium Chloride Elixir 20 MEQ/15 ML UDC PO SCH (08:48)
[2017-07-04] MEDS: Aspirin 81 MG TAB.CHEW PO SCH (08:48)
[2017-07-04] MEDS ORDERED: *HR* Heparin 5,000 UNIT/ML VIAL IVP PRN ×2 (08:51)
[2017-07-04] MEDS ORDERED: amLODIPine 5 MG TABLET PO SCH (09:00)
[2017-07-04] MEDS ORDERED: Heparin 25,000 UNIT/500 ML D5W 25,000 UNIT/500 ML MLS IVC SCH (09:00)
[2017-07-04] MEDS ORDERED: Cholecalciferol (D-3) 1,000 UNIT TABLET PO SCH (09:00)
[2017-07-04] MEDS ORDERED: Aspirin Enteric Coated 81 MG Tablet PO SCH (09:00)
[2017-07-04] MEDS ORDERED: hydroCHLOROthiazide 25 MG TABLET PO SCH (09:00)
[2017-07-04] MEDS: amLODIPine 5 MG TABLET PO SCH (09:20)
[2017-07-04] MEDS: hydroCHLOROthiazide 25 MG TABLET PO SCH (09:20)
--- NOTE | 2017-07-04 09:35 | Palliative - Consult Note ---
Date of Encounter: 07/04/17 Time of Encounter: 08:50 - Assessment and Plan (1) Pleural effusion Current Visit: No Status: Chronic Assessment and plan: Probable cause of his cephalopathy problem this is being followed by pulmonary critical care. DT is planned for today. (2) Elevated troponin Current Visit: Yes Status: Acute Assessment and plan: Cardiology consult. Troponins are trending up wards. Possibly a Non-ST VA, versus demand ischemia. Echocardiogram shows a preserved ejection fraction and some mild diastolic dysfunction. Right ventricle is suboptimally visualized. Following followed by cardiology. (3) Acute respiratory failure with hypoxia and hypercarbia Current Visit: No Status: Acute Assessment and plan: Currently on ventilator. Pulmonary team is considering CT scan to evaluate the pleural effusion further. 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 His therapy has been palliative in nature only not curative. However according to talking to his he is becoming sick and tired of being sick and tired of his desire for chemotherapy may change. (5) Goals of care, counseling/discussion Current Visit: Yes Status: Acute Assessment and plan: The patient's is to call decision-maker and has been throughout his illness. I first met her during his last hospitalization in October of last year. She states that this is a is as aggressive as he would wish to be, and she has asked that his CODE STATUS be changed to DNR CCA DNI. Is consistent with the last hospitalization and at that time he confirmed it. She also has given the opinion that he is getting very tired of the overall condition given that he has not gotten any better and is actually getting worse despite chemotherapy. She has asked that he not be placed on pressors. His CODE STATUS has been changed to DNR CCA DNI. Continue to discuss with the family as time goes on. Patient is certainly hospice eligible if he so desires. Hospice was discussed with him by his oncologist and at that time he wanted to continue aggressive chemotherapy. His condition, however has changed. Continue to discuss this with the family and with the patient if he is extubated. (6) Pain Current Visit: No Status: Acute Assessment and plan: Continue current pain medications. (7) Altered mental status Current Visit: No Status: Resolved Assessment and plan: Patient is now sedated on ventilator, altered mental status is likely due to hypoxemia with hypercapnia. Patient did have a normal MRI of the brain back in April of this year. Unlikely to be due to metastases. Qualifiers: Altered mental status type: coma Coma depth: [place] coma 13-15 Coma timing: at hospital admission Qualified Code(s): R40.2413 - [place] coma scale score 13-15, at hospital admission (8) Small cell lung cancer Current Visit: Yes Status: Chronic Assessment and plan: Probable root cause of all the patient's current problems, patient is getting chemotherapy and radiation therapy for this, however this is palliative in nature. The patient's disease has progressed despite chemotherapy and radiation. Qualifiers: Laterality: unspecified laterality Qualified Code(s): C34.90 - Malignant neoplasm of unspecified part of unspecified bronchus or lung Palliative-CN HPI - Data of Consult Patient: known to practice within the last 3 years Requesting Physician: Celestine Ge MD Primary Care Provider: Byron Mane MD - Consult Narrative Palliative Care/Comfort Measures: Palliative care Reason for consult: goals fo care code status History of present illness: Mr. Kendall is a 76 year old male Who was diagnosed in September of last year with small cell lung cancer. The patient had been relatively healthy prior to that time came in with hypoxemia secondary to a pleural effusion as well as COPD. Patient was intubated at that time during that hospitalization he was seen by palliative care his has discussed issues with him made him DNR a DNI at that time. Patient also back that decision after he was extubated, however the patient also made it clear as did his that he was interested in getting chemotherapy. The patient has undergone 1 round of chemotherapy as well as radiation this was in November through January of this year. He did have some problems with the chemotherapy and he did have to be stopped, they are considering immunotherapy for him. The patient however has been getting weaker and more run down over time according to his . And over the last 2 weeks has been becoming noticeably more short of breath as well as having an altered mental status. She got markedly worse yesterday came in the emergency department was found to be very hypoxemic and hypercapnic. (This is the same presentation as when his cancer was first discovered) is admitted for treatment of this, his chest X ray showed an extensive right pleural effusion patient was put on oxygen and BiPAP, however he deteriorated and required endotracheal intubation. When the patient is to dated on the vent and is hypotensive. 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 Ears however that the pleural aspect is worsening, and again we also know that he is [place] metastasized outside of the chest cavity. Palliative care was consult regarding goals of care and CODE STATUS. Please see the assessment and plan for results of this discussion with family. CC: Celestine Ge MD Past Med Surg Social Fam HX - Past Medical History Medical history: arthritis, cancer (Lung cancer with metastasis to the liver), diabetes, hyperlipidemia, hypertension Psychiatric history: no psych history - Past Surgical History Surgical History: LE vascular intervention, vascular surgery - Social History Smoking Status: Former smoker Packs per day: 1 PPD - family reports he quit many years ago Smokeless Tobacco Status: No Alcohol use: none, occasionally Drug use: none - Family History Father Adopted: No Race: Family Member Ethnicity: Non- Living Status: Age at : 67 Cause of : Lung cancer Hx Family Cardiac Disorders: Yes (HD, VA) Hx Family Respiratory Disorders: No Hx Family Cancer: Yes (Lung) Hx Family GI Disorders: No Hx Family Genitourinary Disorders: No Hx Family Endocrine Disorder: No Hx Family Musculoskeletal Disorders: No Hx Family Neuromuscular Disorders: No Hx Family Neurologic Disorders: No Hx Family HEENT Disorders: No Hx Family Autoimmune Disorders: No Hx Family Reproductive Disorders: No Hx Family Psychosocial Disorders: No Hx Family Medical Disorders: No Mother Race: Family Member Ethnicity: Non- Living Status: Age at : 70 Cause of : Pancreatic cancer Hx Family Cardiac Disorders: Yes Hx Family Respiratory Disorders: No Hx Family Cancer: Yes (Pancreatic) Hx Family GI Disorders: No Hx Family Genitourinary Disorders: No Hx Family Endocrine Disorder: Yes (DM) Hx Family Musculoskeletal Disorders: No Hx Family Neuromuscular Disorders: No Hx Family Neurologic Disorders: No Hx Family HEENT Disorders: No Hx Family Autoimmune Disorders: No Hx Family Reproductive Disorders: No Hx Family Psychosocial Disorders: No Hx Family Medical Disorders: No Medications and Allergies Aspirin Enteric Coated [Aspirin EC] 81 mg PO DAILY 10/16/16 [History] Atenolol [Tenormin] 50 mg PO DAILY 10/16/16 [History] Cholecalciferol (Vitamin D3) [Vitamin D3] 2,000 unit PO DAILY 10/16/16 [History] Docusate [Colace] 100 mg PO DAILY PRN 10/16/16 [History] Fesoterodine Fumarate [Toviaz] 8 mg PO DAILY 10/16/16 [History] Fluticasone Propionate [Flovent Hfa] 1 puff IH BID 10/16/16 [History] HYDROcodone/Acet 5/325 mg [[place] 5-325 mg] 1 tab PO Q6H PRN 10/16/16 [History] Lisinopril [Zestril] 10 mg PO QPM 10/16/16 [History] Lisinopril [Zestril] 20 mg PO QAM 10/16/16 [History] Metformin HCl [Metformin HCl ER] 750 mg PO BID 10/16/16 [History] Multivitamin [Multi-Day Vitamins] 1 each PO DAILY 10/16/16 [History] Oxygen 2 l NS CONT 10/16/16 [History] Simvastatin [Zocor] 40 mg PO QPM 10/16/16 [History] hydroCHLOROthiazide [Hydrochlorothiazide] 25 mg PO DAILY 10/16/16 [History] Amlodipine Besylate 2.5 mg PO DAILY 02/21/17 [History] Trospium Chloride [Trospium Chloride] 20 mg PO QPM 02/21/17 [History] Furosemide [Lasix] 20 mg PO DAILY PRN #30 tablet 04/02/17 [Rx] Polyethylene Glycol 3350 [MiraLAX] 17 gm PO DAILY PRN 04/26/17 [History] Potassium Chloride Elixir [Potassium Chloride] 10 meq PO DAILY 04/26/17 [History ] Gluc 2Kcl/Chondr/Kathy Hy/Hy AC [Glucosamine & Chondroitin Cap] 2 each PO DAILY 04/30/17 [History] Levothyroxine [Synthroid] 37.5 mcg PO QAM #45 tablet 05/01/17 [Rx] Loperamide [Imodium] 2 mg PO AD #60 capsule 06/12/17 [Rx] Allergies steroids Allergy (Severe, Uncoded 06/12/17 15:59) Difficulty Breathing ROS unobtainable: due to mental status Palliative Care-Exam - Constitutional Vitals: Temp Pulse Resp BP Pulse Ox 98.3 F 80 14 86/44 92 07/04/17 09:00 07/04/17 09:00 07/04/17 09:00 07/04/17 09:00 07/04/17 09:00 General appearance: Present: no acute distress - Head Head Exam: Present: atraumatic, normal inspection - Eye Eye exam: Present: normal appearance - ENT ENT exam: Present: mucous membranes moist (The patient is intubated.) - Neck Neck exam: Present: normal inspection - Respiratory Respiratory exam: Present: decreased breath sounds (Right greater than left) - GI/Abdominal Exam GI/Abdominal exam: Present: diminished bowel sounds, soft. Absent: tenderness - Catheter Type: Urethral ([place]azariegos) - Extremities Exam Extremities exam: Present: normal inspection. Absent: pedal edema, tenderness - Neurological Exam Neurological exam: Present: altered (Patient is sedated on ventilator) - Psychiatric Psychiatric exam: Absent: agitated, anxious (Patient is sedated on ventilator) - Skin Skin exam: Present: dry, warm Internal Medicine - CN: Reslt - Labs CBC & Chem 7: 07/04/17 04:15 07/04/17 04:15 Labs: Short CBC 07/04/17 Range/Units 04:15 WBC 10.6 (4.3-11.1) K/mcL Hgb 10.3 L (12.9-16.9) g/dL Hct 34.6 L (37.5-50.1) % Plt Count 146 (140-400) K/mcL Neutrophils # 9.7 H (1.6-8.9) K/mcL BMP 07/04/17 04:15 Sodium 144 Potassium 3.5 Chloride 96 L Carbon Dioxide 40 H* BUN 34 H Creatinine 1.02 Glucose 165 H Calcium 9.4 Cardiac Enzymes 07/03/17 07/04/17 07/04/17 Range/Units 22:40 04:15 07:50 Troponin I 0.29 H* 0.32 H* 0.56 H* (0-0.03) ng/mL - ABG Interpretation ABG results: ABG ABG pH 7.42 pH Units (7.32-7.45) 07/04/17 08:15 ABG pCO2 68 mmHg (35-45) H 07/04/17 08:15 ABG pO2 61 mmHg (85-104) L 07/04/17 08:15 ABG O2 Saturation 91 % (95-98) L 07/04/17 08:15 PT/INR, D-dimer PT 13.5 Seconds (9.4-12.1) H 07/03/17 14:56 - Impressions Impressions Chest X-Ray 07/04/17 02:34 IMPRESSION: Worsening opacification of the right hemithorax with a large right pleural effusion and consolidation suggestive for pneumonia/atelectasis Tip of the ET tube is 3.7 cm above the evgeny. D/ / Ana Monet MD / Ana Monet MD Interpreting Provider: Ana Monet MD X-Ray 07/04/17 02:34 IMPRESSION: Tip and side hole of the enteric tube are well below the GE junction. D/ / Ana Monet MD / Ana Monet MD Interpreting Provider: Ana Monet MD Consult Discharge Plan - Plan Referrals: Byron Mane MD [Primary Care Provider] - Palliative Quality Palliative Quality: Screen for Code Status: Yes, Screen for Goals of Care: Yes, Screen for Pain: Yes, If Pain Regimen Started, Initiate Bowel Regimen: Yes, Screen for Nausea/Vomitting: Yes Code Status: 07/03/17 20:16 Resuscitation Status: Active [RES] Routine Comment: Resuscitation Status: Full Code Resuscitation Status: Active [RES] Routine Resuscitation Status: [id number] Comment: no pressors
[2017-07-04] MEDS ORDERED: 0.9 % Sodium Chloride 500 ML IVC ONE (09:51)
[2017-07-04] MEDS ORDERED: Calcium Gluconate 1,000 MG in D5% in Water 100 ML IVPB PRN (10:46)
[2017-07-04] MEDS: Heparin 25,000 UNIT/500 ML D5W 25,000 UNIT/500 ML MLS IVC SCH (11:10)
[2017-07-04 11:17] LABS: INR 1.3; Prothrombin Time 14.1 Seconds (9.4-12.1)
[2017-07-04 11:19] LABS: Activated Partial Thrombo Time 26.3 Seconds (26.0-36.0)
--- NOTE | 2017-07-04 11:38 | Pulmonology Consult Note ---
<Pablo Rogers - Last Filed: 07/04/17 13:52> Date of Encounter: 07/04/17 Time of Encounter: 06:45 Assessment and Plan (1) Acute respiratory failure with hypoxia and hypercarbia Current Visit: No Status: Acute This 76-year-old male has a medical history of small cell lung carcinoma. He has underwent radiation and immunotherapy. He was admitted to the intensive care unit after being intubated due to poor mental status. His arterial blood gas reveals hypoxia and hypercarbia This is most likely due to a massive right- sided pleural effusion that we viewed on chest x-ray. This pleural effusion was viewed on ultrasound, and revealed a lot of loculations making it very complicated to treat. This is consistent with a CT scan of the chest that was performed recently. Due to how complicated his pleural effusion is, thoracentesis presents a larger risk of pneumothorax. This patient is currently intubated and on vent management. We will discuss options with the family as to how to proceed with management of his intubation as his patient has very little chance of being successfully extubated due to his poor oxygenation status and inability to breathe on his own. (2) Pleural effusion Current Visit: Yes Status: Acute See above (3) Altered mental status Current Visit: Yes Status: Acute See above Qualifiers: Altered mental status type: disorientation Qualified Code(s): R41.0 - Disorientation, unspecified (4) Small cell lung cancer Current Visit: Yes Status: Chronic This is being managed by oncology. However, there is a meeting 1600 today to discuss all future treatment options. Prognosis was discussed with his this morning regarding his worsening cancer. The understands that his prognosis is poor and she wants to wait for more family to contact to discuss the possibility of extubation and comfort care. Qualifiers: Laterality: right Qualified Code(s): C34.91 - Malignant neoplasm of unspecified part of right bronchus or lung (5) Pneumonia Current Visit: Yes Status: Acute Currently on vancomycin and Zosyn for treatment of a possible right-sided pneumonia. This patient is hypotensive. The family does not want him to be placed on pressors at this time. I will give him a 500 mL bolus of 0.9% normal saline to help with his blood pressure. However, due to his right-sided pleural effusion, I want to be careful about adding on more volume to this patient. Qualifiers: Pneumonia type: due to unspecified organism Laterality: right Lung location: unspecified part of lung Qualified Code(s): J18.9 - Pneumonia, unspecified organism (6) Elevated troponin Current Visit: Yes Status: Acute We have started low-dose heparin. This is being followed by cardiology. (7) DVT prophylaxis Current Visit: Yes Status: Acute On low-dose heparin for an elevated troponin History of Present Illness Consult date: 07/04/17 Requesting physician: Coty Escoto Reason for consult: hypoxemia, abnormal CXR/CT, other (Acute hypoxic hypercapnic respiratory failure, vent management) Chief complaint: Shortness of breath, altered mental status History of present illness: This is a 76-year-old male with a past medical history of metastatic small cell lung carcinoma presents to the intensive care unit after a two-day previous history of worsening altered mental status. He is currently intubated. A chest x-ray was performed which shows a large pleural effusion on the right side of his chest. His states that over the last 2 weeks she has noticed a change in his mental status. She also states that he has stated in the last 2 weeks that he is "sick and tired of being sick and tired". Family states that "they have fought and fought in that he is tired of fighting" Past Med Surg Social Fam HX - Past Medical History Medical history: arthritis, cancer (Lung cancer with metastasis to the liver), diabetes, hyperlipidemia, hypertension Psychiatric history: no psych history - Past Surgical History Surgical History: LE vascular intervention, vascular surgery - Social History Smoking Status: Former smoker Packs per day: 1 PPD - family reports he quit many years ago Smokeless Tobacco Status: No Alcohol use: none, occasionally Drug use: none - Family History Father Adopted: No Race: Family Member Ethnicity: Non- Living Status: Age at : 67 Cause of : Lung cancer Hx Family Cardiac Disorders: Yes (HD, NM) Hx Family Respiratory Disorders: No Hx Family Cancer: Yes (Lung) Hx Family GI Disorders: No Hx Family Genitourinary Disorders: No Hx Family Endocrine Disorder: No Hx Family Musculoskeletal Disorders: No Hx Family Neuromuscular Disorders: No Hx Family Neurologic Disorders: No Hx Family HEENT Disorders: No Hx Family Autoimmune Disorders: No Hx Family Reproductive Disorders: No Hx Family Psychosocial Disorders: No Hx Family Medical Disorders: No Mother Race: Family Member Ethnicity: Non- Living Status: Age at : 70 Cause of : Pancreatic cancer Hx Family Cardiac Disorders: Yes Hx Family Respiratory Disorders: No Hx Family Cancer: Yes (Pancreatic) Hx Family GI Disorders: No Hx Family Genitourinary Disorders: No Hx Family Endocrine Disorder: Yes (DM) Hx Family Musculoskeletal Disorders: No Hx Family Neuromuscular Disorders: No Hx Family Neurologic Disorders: No Hx Family HEENT Disorders: No Hx Family Autoimmune Disorders: No Hx Family Reproductive Disorders: No Hx Family Psychosocial Disorders: No Hx Family Medical Disorders: No Medications and Allergies Aspirin Enteric Coated [Aspirin EC] 81 mg PO DAILY 10/16/16 [History] Atenolol [Tenormin] 50 mg PO DAILY 10/16/16 [History] Cholecalciferol (Vitamin D3) [Vitamin D3] 2,000 unit PO DAILY 10/16/16 [History] Docusate [Colace] 100 mg PO DAILY PRN 10/16/16 [History] Fesoterodine Fumarate [Toviaz] 8 mg PO DAILY 10/16/16 [History] Fluticasone Propionate [Flovent Hfa] 1 puff IH BID 10/16/16 [History] HYDROcodone/Acet 5/325 mg [[place] 5-325 mg] 1 tab PO Q6H PRN 10/16/16 [History] Lisinopril [Zestril] 10 mg PO QPM 10/16/16 [History] Lisinopril [Zestril] 20 mg PO QAM 10/16/16 [History] Metformin HCl [Metformin HCl ER] 750 mg PO BID 10/16/16 [History] Multivitamin [Multi-Day Vitamins] 1 each PO DAILY 10/16/16 [History] Oxygen 2 l NS CONT 10/16/16 [History] Simvastatin [Zocor] 40 mg PO QPM 10/16/16 [History] hydroCHLOROthiazide [Hydrochlorothiazide] 25 mg PO DAILY 10/16/16 [History] Amlodipine Besylate 2.5 mg PO DAILY 02/21/17 [History] Trospium Chloride [Trospium Chloride] 20 mg PO QPM 02/21/17 [History] Furosemide [Lasix] 20 mg PO DAILY PRN #30 tablet 04/02/17 [Rx] Polyethylene Glycol 3350 [MiraLAX] 17 gm PO DAILY PRN 04/26/17 [History] Potassium Chloride Elixir [Potassium Chloride] 10 meq PO DAILY 04/26/17 [History ] Gluc 2Kcl/Chondr/Kathy Hy/Hy AC [Glucosamine & Chondroitin Cap] 2 each PO DAILY 04/30/17 [History] Levothyroxine [Synthroid] 37.5 mcg PO QAM #45 tablet 05/01/17 [Rx] Loperamide [Imodium] 2 mg PO AD #60 capsule 06/12/17 [Rx] steroids Allergy (Severe, Uncoded 06/12/17 15:59) Difficulty Breathing ROS unobtainable: due to endotracheal tube All Systems: A 10-system review of systems was performed and is negative for pertinent findings except as documented above in the HPI. Physical Examination Vital Signs: Vital Signs, Last 4 Hours Temp Pulse Resp BP Pulse Ox 07/04/17 11:00 98.8 F 80 16 110/54 91 07/04/17 10:00 79 14 82/42 93 07/04/17 09:00 98.3 F 80 14 86/44 92 07/04/17 08:06 98.3 F 07/04/17 08:00 77 General appearance: other (76-year-old male intubated, appears slightly agitated.) Eyes: nonicteric ENT: oropharynx moist Effort: normal Inspection: normal Auscultation: right: diminished breath sounds, rales Cardiovascular: regular rate and rhythm Gastrointestinal: normoactive bowel sounds, soft, non-distended Integumentary: normal Extremities: no cyanosis, no clubbing, pink and warm, pulses normal, edema (1+ pitting edema bilaterally) Musculoskeletal: no deformities other (Follows simple commands like opening eyes and moving extremities) other (Appears agitated) Ventilator Settings Ventilator Settings: Ventilator Settings, Last 8 Hours Ventilator Mode VC+ Ventilator Mode VC+ Ventilator Mode VC+ Ventilator Mode VC+ Ventilator Mode VC+ Ventilator Mode VC+ Ventilator Mode VC+ Ventilator Mode VC+ Ventilator Mode VC+ Ventilator Tidal Volume 500 Setting Ventilator Tidal Volume 500 Setting Ventilator Tidal Volume 500 Setting Ventilator Tidal Volume 500 Setting Ventilator Tidal Volume 550 Setting Ventilator Tidal Volume 550 Setting Ventilator Tidal Volume 550 Setting Ventilator Tidal Volume 550 Setting Ventilator Tidal Volume 550 Setting Ventilator Respiratory Rate 14 Setting Ventilator Respiratory Rate 14 Setting Ventilator Respiratory Rate 14 Setting Ventilator Respiratory Rate 12 Setting Ventilator Respiratory Rate 12 Setting Ventilator Respiratory Rate 12 Setting Ventilator Respiratory Rate 12 Setting Ventilator Respiratory Rate 12 Setting Ventilator Respiratory Rate 12 Setting Actual Respiratory Rate 16 Actual Respiratory Rate 14 Actual Respiratory Rate 12 Actual Respiratory Rate 12 Actual Respiratory Rate 12 Actual Respiratory Rate 12 Actual Respiratory Rate 12 Positive End Expiratory 8 Pressure Positive End Expiratory 8 Pressure Positive End Expiratory 8 Pressure Positive End Expiratory 5 Pressure Positive End Expiratory 5 Pressure Positive End Expiratory 5 Pressure Positive End Expiratory 5 Pressure Positive End Expiratory 5 Pressure Positive End Expiratory 5 Pressure Peak Inspiratory Airway 31 Pressure Peak Inspiratory Airway 28 Pressure Peak Inspiratory Airway 30 Pressure Peak Inspiratory Airway 30 Pressure Peak Inspiratory Airway 30 Pressure Peak Inspiratory Airway 30 Pressure Peak Inspiratory Airway 42 Pressure Results - Laboratory Findings CBC and BMP: 07/04/17 04:15 07/04/17 04:15 ABG ABG pH 7.42 pH Units (7.32-7.45) 07/04/17 08:15 ABG pCO2 68 mmHg (35-45) H 07/04/17 08:15 ABG pO2 61 mmHg (85-104) L 07/04/17 08:15 ABG O2 Saturation 91 % (95-98) L 07/04/17 08:15 PT/INR, D-dimer PT 14.1 Seconds (9.4-12.1) H 07/04/17 11:02 Abnormal lab findings: Abnormal lab results RBC 3.40 M/mcL (4.19-5.50) L 07/04/17 04:15 Hgb 10.3 g/dL (12.9-16.9) L 07/04/17 04:15 Hct 34.6 % (37.5-50.1) L 07/04/17 04:15 MCV 101.8 fL (83.0-100.0) H 07/04/17 04:15 MCHC 29.8 g/dL (31.6-35.5) L 07/04/17 04:15 RDW 16.6 % (11.5-14.5) H 07/04/17 04:15 MPV 9.0 fL (9.4-12.4) L 07/04/17 04:15 Neutrophils # 9.7 K/mcL (1.6-8.9) H 07/04/17 04:15 Lymphocytes # 0.3 K/mcL (0.6-4.6) L 07/04/17 04:15 Nucleated RBCs/100 WBC 0.2 /100 WBC (0) H 07/04/17 04:15 PT 14.1 Seconds (9.4-12.1) H 07/04/17 11:02 ABG pCO2 68 mmHg (35-45) H 07/04/17 08:15 ABG pO2 61 mmHg (85-104) L 07/04/17 08:15 ABG HCO3 44.1 mEQ/L (21-27) H 07/04/17 08:15 ABG Total CO2 46.2 mEq/L (20-26) H 07/04/17 08:15 ABG O2 Saturation 91 % (95-98) L 07/04/17 08:15 ABG Base Excess 16.9 mEq/L (-2.0 to 3.0) H 07/04/17 08:15 Chloride 96 mEq/L (98-109) L 07/04/17 04:15 Carbon Dioxide 40 mEq/L (19-29) H* 07/04/17 04:15 BUN 34 mg/dL (8-26) H 07/04/17 04:15 BUN/Creatinine Ratio 33 (6-26) H 07/04/17 04:15 Glucose 165 mg/dL (70-99) H 07/04/17 04:15 POC Glucose 169 (58-89) H 07/04/17 11:07 Hemoglobin A1c 6.6 % (-5.6) H 07/04/17 04:15 Calculated Osmolality 309 (280-300) H 07/04/17 04:15 Magnesium 1.2 mg/dL (1.6-2.6) L 07/04/17 04:15 Troponin I 0.56 ng/mL (0-0.03) H* 07/04/17 07:50 Albumin 2.7 g/dL (3.5-5.0) L 07/03/17 14:56 Globulin 4.4 g/dL (2.4-3.5) H 07/03/17 14:56 Albumin/Globulin Ratio 0.6 (1.1-2.2) L 07/03/17 14:56 HDL Cholesterol 38 mg/dL (40-59) L 07/04/17 04:15 Urine Protein 30 mg/dL (Neg-Trace) H 07/03/17 16:24 Ur Squamous Epith Cells Many per lpf (None-Few) H 07/03/17 16:24 Urine Opiates Screen Positive ng/mL (Beexpb=710) H 07/03/17 16:24 - Diagnostic Findings Chest x-ray: report reviewed, image reviewed - Clinical Findings Intake & Output: Intake & Output 07/03/17 07/04/17 07/04/17 23:59 07:59 15:59 Intake Total 250 / 250 2 / 2 Output Total 250 / 250 150 / 150 750 / 750 Balance -250 / -250 100 / 100 -748 / -748 Weight 99.79 kg Consult Discharge Plan - Plan Referrals: Byron Mane MD [Primary Care Provider] - <Deandre Issa M - Last Filed: 07/04/17 16:41> Date of Encounter: 07/04/17 All Systems: A 10-system review of systems was performed and is negative for pertinent findings except as documented above in the HPI. Physical Examination Vital Signs: Vital Signs, Last 4 Hours Temp Pulse Resp BP Pulse Ox 07/04/17 15:25 16 94 07/04/17 15:13 73 07/04/17 15:00 98.5 F 89 16 116/62 90 07/04/17 14:00 71 14 119/56 90 07/04/17 13:00 84 14 97/51 94 Ventilator Settings Ventilator Settings: Ventilator Settings, Last 8 Hours Ventilator Mode VC+ Ventilator Mode VC+ Ventilator Mode VC+ Ventilator Mode VC+ Ventilator Mode VC+ Ventilator Mode VC+ Ventilator Mode VC+ Ventilator Mode VC+ Ventilator Mode VC+ Ventilator Tidal Volume 500 Setting Ventilator Tidal Volume 500 Setting Ventilator Tidal Volume 500 Setting Ventilator Tidal Volume 500 Setting Ventilator Tidal Volume 500 Setting Ventilator Tidal Volume 500 Setting Ventilator Tidal Volume 500 Setting Ventilator Tidal Volume 500 Setting Ventilator Tidal Volume 500 Setting Ventilator Respiratory Rate 14 Setting Ventilator Respiratory Rate 14 Setting Ventilator Respiratory Rate 14 Setting Ventilator Respiratory Rate 14 Setting Ventilator Respiratory Rate 14 Setting Ventilator Respiratory Rate 14 Setting Ventilator Respiratory Rate 14 Setting Ventilator Respiratory Rate 14 Setting Ventilator Respiratory Rate 14 Setting Actual Respiratory Rate 16 Actual Respiratory Rate 16 Actual Respiratory Rate 14 Actual Respiratory Rate 14 Actual Respiratory Rate 16 Actual Respiratory Rate 25 Actual Respiratory Rate 14 Actual Respiratory Rate 16 Actual Respiratory Rate 14 Positive End Expiratory 8 Pressure Positive End Expiratory 8 Pressure Positive End Expiratory 8 Pressure Positive End Expiratory 8 Pressure Positive End Expiratory 8 Pressure Positive End Expiratory 8 Pressure Positive End Expiratory 8 Pressure Positive End Expiratory 8 Pressure Positive End Expiratory 8 Pressure Peak Inspiratory Airway 27 Pressure Peak Inspiratory Airway 31 Pressure Peak Inspiratory Airway 29 Pressure Peak Inspiratory Airway 31 Pressure Peak Inspiratory Airway 32 Pressure Peak Inspiratory Airway 30 Pressure Peak Inspiratory Airway 32 Pressure Peak Inspiratory Airway 31 Pressure Peak Inspiratory Airway 28 Pressure Results - Laboratory Findings CBC and BMP: 07/04/17 04:15 07/04/17 04:15 ABG ABG pH 7.42 pH Units (7.32-7.45) 07/04/17 08:15 ABG pCO2 68 mmHg (35-45) H 07/04/17 08:15 ABG pO2 61 mmHg (85-104) L 07/04/17 08:15 ABG O2 Saturation 91 % (95-98) L 07/04/17 08:15 PT/INR, D-dimer PT 14.1 Seconds (9.4-12.1) H 07/04/17 11:02 Abnormal lab findings: Abnormal lab results RBC 3.40 M/mcL (4.19-5.50) L 07/04/17 04:15 Hgb 10.3 g/dL (12.9-16.9) L 07/04/17 04:15 Hct 34.6 % (37.5-50.1) L 07/04/17 04:15 MCV 101.8 fL (83.0-100.0) H 07/04/17 04:15 MCHC 29.8 g/dL (31.6-35.5) L 07/04/17 04:15 RDW 16.6 % (11.5-14.5) H 07/04/17 04:15 MPV 9.0 fL (9.4-12.4) L 07/04/17 04:15 Neutrophils # 9.7 K/mcL (1.6-8.9) H 07/04/17 04:15 Lymphocytes # 0.3 K/mcL (0.6-4.6) L 07/04/17 04:15 Nucleated RBCs/100 WBC 0.2 /100 WBC (0) H 07/04/17 04:15 PT 14.1 Seconds (9.4-12.1) H 07/04/17 11:02 ABG pCO2 68 mmHg (35-45) H 07/04/17 08:15 ABG pO2 61 mmHg (85-104) L 07/04/17 08:15 ABG HCO3 44.1 mEQ/L (21-27) H 07/04/17 08:15 ABG Total CO2 46.2 mEq/L (20-26) H 07/04/17 08:15 ABG O2 Saturation 91 % (95-98) L 07/04/17 08:15 ABG Base Excess 16.9 mEq/L (-2.0 to 3.0) H 07/04/17 08:15 Chloride 96 mEq/L (98-109) L 07/04/17 04:15 Carbon Dioxide 40 mEq/L (19-29) H* 07/04/17 04:15 BUN 34 mg/dL (8-26) H 07/04/17 04:15 BUN/Creatinine Ratio 33 (6-26) H 07/04/17 04:15 Glucose 165 mg/dL (70-99) H 07/04/17 04:15 POC Glucose 155 (58-89) H 07/04/17 15:06 Hemoglobin A1c 6.6 % (-5.6) H 07/04/17 04:15 Calculated Osmolality 309 (280-300) H 07/04/17 04:15 Magnesium 1.2 mg/dL (1.6-2.6) L 07/04/17 04:15 Troponin I 0.56 ng/mL (0-0.03) H* 07/04/17 07:50 Albumin 2.7 g/dL (3.5-5.0) L 07/03/17 14:56 Globulin 4.4 g/dL (2.4-3.5) H 07/03/17 14:56 Albumin/Globulin Ratio 0.6 (1.1-2.2) L 07/03/17 14:56 HDL Cholesterol 38 mg/dL (40-59) L 07/04/17 04:15 Urine Protein 30 mg/dL (Neg-Trace) H 07/03/17 16:24 Ur Squamous Epith Cells Many per lpf (None-Few) H 07/03/17 16:24 Urine Opiates Screen Positive ng/mL (Brzxsu=563) H 07/03/17 16:24 - Clinical Findings Intake & Output: Intake & Output 07/04/17 07/04/17 07/04/17 07:59 15:59 23:59 Intake Total 250 / 250 291 / 291 22 / 22 Output Total 150 / 150 1050 / 1050 Balance 100 / 100 -759 / -759 - Attending Attestation I examined this patient and my medical decision-making was reviewed with the Resident Physician. I agree with the documented findings, disposition and treatment plan as described except to the extent set forth below. Patient seen and examined. Labs, radiology, chart personally reviewed. 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 Pulmonary: Acceptable oxygenation and ventilation on current vent setting and will lower tidal volume with increasing respiratory rate and decrease FiO2. Again plan for CPAP trial and ultrasound was done at the bedside with evidence of complicated malignant effusion which would be very difficult for thoracentesis or Pleurx catheter placement. There is a possibility patient could have compassionate extubation, however we will wait for the family decision. Cardiovascular: acceptable BP GI: Nutrition per dietary and GI prophylaxis per routine Heme: DVT prophylaxis per routine. ID: Continue antibiotics and plan to de-escalation Renal; urine out put and renal funtion reviewed Endorcine: blood glucose is monitored Lines: all lines checked and no evidence of infections Skin: skin care to prevent pressure ulcers per nursing routine care Overall prognosis is very poor and discussed with the family at the bedside. Appreciate Dr. Bean's help I spent 35 min of Critical Care time with this patient. It involved decision making of high complexity to assess, manipulate, and support vital organ system failure and/or to prevent further life threatening deterioration of the patient' s condition. The time involved in the performance of separately reportable procedures was not counted toward critical care time.
[2017-07-04] MEDS ORDERED: Dexmedetomidine HCl 400 MCG/100 ML MLS IVC ONE (11:50)
[2017-07-04] MEDS: Magnesium Sulfate 2 GM in D5% in Water 100 ML IVPB PRN (11:57)
[2017-07-04] MEDS: Dexmedetomidine HCl 400 MCG/100 ML MLS IVC SCH ×2 (12:15→22:44)
--- NOTE | 2017-07-04 15:07 | Electrocardiograph Report ---
[address] [place] [address] Test Date: 2017-07-03 Pat Name: Meet Kendall Department: 105 Room: 11 Gender: M Estimator: [facility] : 1940 Requested By: Amadou Deras Order Number: [id number] Reading MD: Remington Schuler MD Measurements Intervals [place] Rate: 78 P: 54 ND: 134 QRS: 14 QRSD: 109 T: -39 QT: 374 QTc: 408 Interpretive Statements SINUS RHYTHM LATERAL ISCHEMIA Electronically Signed On 07-04-2017 15:05:05 EDT by Remington Schuler MD
--- NOTE | 2017-07-04 16:13 | Cardiology Consult Note ---
<ChasDonovan - Last Filed: 07/04/17 17:29> Date of Encounter: 07/04/17 Time of Encounter: 11:00 Assessment and Plan (1) Elevated troponin Current Visit: Yes Status: Acute Patient had elevated troponin of 0.36 on arrival, currently at 0.56. Evidence of possible lateral ischemia in V5 and V6 of current EKG when compared to one from 10/29/16. Current CXR shows worsening R pleural effusion with consolidation suggesting PNA. Elevated troponins most likely secondary to PNA. Continue to monitor troponins and telemetry. (2) Diastolic CHF Current Visit: Yes Status: Acute Current echocardiogram shows a LVEF of 60% with mild diastolic dysfunction of LV. BP range in the past 24 hours was 98/62-146/110. Patient currently on amlodipine, lasix, HCTZ, and lisinopril. Continue current treatment. Qualifiers: Qualified Code(s): I50.30 - Unspecified diastolic (congestive) heart failure (3) HTN (hypertension) Current Visit: Yes Status: Chronic Current BP range in past 24 hours was 98/62-146/110. Patient currently on amlodipine, lasix, HCTZ, and lisinopril. Continue current medical regimen. Qualifiers: Hypertension type: essential hypertension Qualified Code(s): I10 - Essential (primary) hypertension (4) HLD (hyperlipidemia) Current Visit: Yes Status: Chronic Continue statin. Qualifiers: Hyperlipidemia type: pure hypercholesterolemia Qualified Code(s): E78.00 - Pure hypercholesterolemia, unspecified; E78.0 - Pure hypercholesterolemia (5) Hypomagnesemia Current Visit: Yes Status: Resolved Patient had magnesium of 1.2 and was given order of magnesium. Currently at 1.7 Discussion w patient/family: The assessment and plan as outlined above was discussed with the patient and/or family members who expressed understanding and agreement. All questions were answered. Thank you for involving us in the care of your patient. Please call with any questions. History of Present Illness Consult date: 07/04/17 Requesting physician: Amadou Deras Consult reason: Positive Troponin, History of metastatic lung cancer Chief complaint: AMS History of present illness: Mr. Kendall is a 76 year old male with a PMH of metastatic lung cancer, diabetes , HLD, and HTN that presented to the ED on 07/03/17 for AMS secondary to hypoxia. Patient's says that he is on oxygen at home, but for the past week he has not been compliant with it. SpO2 on admission was 66%. says patient was short of breath but denied that the patient reported any chest pain. 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 Chest x-ray on arrival showed R pleural effusion with atelectasis. Today' s CXR shows worsening consolidation. He is currently intubated. Troponin on arrival was 0.36 and he does not have a baseline history of elevated troponins. Current echocardiogram shows a LVEF of 60% with mild diastolic dysfunction of the LV. EKG on arrival shows signs of lateral ischemia which was not present on his EKG from 10/29/2016. Past Med Surg Social Fam HX - Past Medical History Medical history: arthritis, cancer (Lung cancer with metastasis to the liver), diabetes, hyperlipidemia, hypertension Psychiatric history: no psych history - Past Surgical History Surgical History: LE vascular intervention, vascular surgery - Social History Smoking Status: Former smoker Packs per day: 1 PPD - family reports he quit many years ago Smokeless Tobacco Status: No Alcohol use: none, occasionally Drug use: none - Family History Father Adopted: No Race: Family Member Ethnicity: Non- Living Status: Age at : 69 Cause of : Lung cancer Hx Family Cardiac Disorders: Yes (HD, [place]) Hx Family Respiratory Disorders: No Hx Family Cancer: Yes (Lung) Hx Family GI Disorders: No Hx Family Genitourinary Disorders: No Hx Family Endocrine Disorder: No Hx Family Musculoskeletal Disorders: No Hx Family Neuromuscular Disorders: No Hx Family Neurologic Disorders: No Hx Family HEENT Disorders: No Hx Family Autoimmune Disorders: No Hx Family Reproductive Disorders: No Hx Family Psychosocial Disorders: No Hx Family Medical Disorders: No Mother Race: Family Member Ethnicity: Non- Living Status: Age at : 70 Cause of : Pancreatic cancer Hx Family Cardiac Disorders: Yes Hx Family Respiratory Disorders: No Hx Family Cancer: Yes (Pancreatic) Hx Family GI Disorders: No Hx Family Genitourinary Disorders: No Hx Family Endocrine Disorder: Yes (DM) Hx Family Musculoskeletal Disorders: No Hx Family Neuromuscular Disorders: No Hx Family Neurologic Disorders: No Hx Family HEENT Disorders: No Hx Family Autoimmune Disorders: No Hx Family Reproductive Disorders: No Hx Family Psychosocial Disorders: No Hx Family Medical Disorders: No Medications and Allergies Aspirin Enteric Coated [Aspirin EC] 81 mg PO DAILY 10/16/16 [History] Atenolol [Tenormin] 50 mg PO DAILY 10/16/16 [History] Cholecalciferol (Vitamin D3) [Vitamin D3] 2,000 unit PO DAILY 10/16/16 [History] Docusate [Colace] 100 mg PO DAILY PRN 10/16/16 [History] Fesoterodine Fumarate [Toviaz] 8 mg PO DAILY 10/16/16 [History] Fluticasone Propionate [Flovent Hfa] 1 puff IH BID 10/16/16 [History] HYDROcodone/Acet 5/325 mg [[place] 5-325 mg] 1 tab PO Q6H PRN 10/16/16 [History] Lisinopril [Zestril] 10 mg PO QPM 10/16/16 [History] Lisinopril [Zestril] 20 mg PO QAM 10/16/16 [History] Metformin HCl [Metformin HCl ER] 750 mg PO BID 10/16/16 [History] Multivitamin [Multi-Day Vitamins] 1 each PO DAILY 10/16/16 [History] Oxygen 2 l NS CONT 10/16/16 [History] Simvastatin [Zocor] 40 mg PO QPM 10/16/16 [History] hydroCHLOROthiazide [Hydrochlorothiazide] 25 mg PO DAILY 10/16/16 [History] Amlodipine Besylate 2.5 mg PO DAILY 02/21/17 [History] Trospium Chloride [Trospium Chloride] 20 mg PO QPM 02/21/17 [History] Furosemide [Lasix] 20 mg PO DAILY PRN #30 tablet 04/02/17 [Rx] Polyethylene Glycol 3350 [MiraLAX] 17 gm PO DAILY PRN 04/26/17 [History] Potassium Chloride Elixir [Potassium Chloride] 10 meq PO DAILY 04/26/17 [History ] Gluc 2Kcl/Chondr/Kathy Hy/Hy AC [Glucosamine & Chondroitin Cap] 2 each PO DAILY 04/30/17 [History] Levothyroxine [Synthroid] 37.5 mcg PO QAM #45 tablet 05/01/17 [Rx] Loperamide [Imodium] 2 mg PO AD #60 capsule 06/12/17 [Rx] 3 Allergy/AdvReac Type Severity Reaction Status Date / Time steroids Allergy Severe Difficulty Uncoded 06/12/17 15:59 Breathing ROS unobtainable: due to endotracheal tube, due to mental status All Systems Review: A 10-system review of systems was performed and is negative for pertinent findings except as documented above in the HPI. Physical Examination Vital Signs, Last 4 Hours Temp Pulse Resp BP Pulse Ox 07/04/17 15:25 16 94 07/04/17 15:13 73 07/04/17 15:00 98.5 F 89 16 116/62 90 07/04/17 14:00 71 14 119/56 90 07/04/17 13:00 84 14 97/51 94 General: Other (Patient is intubated. ) Neck: No JVD Cardiac: Reg Rate and Rhythm, Normal S1 and S2, No Murmur Lungs: Other (Wheezing noted bilaterally. Worse on left lower lobe. Decreased breath sounds bilaterally.) Extremities: No Clubbing, No Cyanosis, Other (+1 pitting edema bilateraly. ) Results 07/04/17 04:15 07/04/17 04:15 Lab Results 07/03/17 07/04/17 07/04/17 22:40 04:15 04:15 WBC 10.6 Hgb 10.3 L Hct 34.6 L Plt Count 146 INR APTT Sodium 144 Potassium 3.5 Chloride 96 L Carbon Dioxide 40 H* BUN 34 H Creatinine 1.02 Glucose 165 H Calcium 9.4 Magnesium 1.2 L Troponin I 0.29 H* 07/04/17 07/04/17 07/04/17 04:15 07:50 11:02 WBC Hgb Hct Plt Count INR 1.3 APTT 26.3 Sodium Potassium Chloride Carbon Dioxide BUN Creatinine Glucose Calcium Magnesium Troponin I 0.32 H* 0.56 H* Laboratory Tests 07/04/17 16:50 Magnesium 1.7 - Imaging and Cardiology Chest Xray: report reviewed (07/03/17: R pleural effusion with atelectasis or consolidation. 07/04/17: Worsening R pleural effusion and consolidation suggestive of pneumonia/atelectasis.) Stress Test: report reviewed (LVEF of 60%. Normal LV size and systolic function. Mild diastolic dysfunction of LV. Suboptimal study for RV, valves.) Echo: report reviewed - EKG Interpretation EKG results cardiology: personally reviewed (07/03/17: Evidence of new ST- depression in V5 and V6 suggestive of lateral ischemia when compared to EKG from 10/29/16.) Consult Discharge Plan - Plan Referrals: Byron Mane MD [Primary Care Provider] - <RenaeJace Jess - Last Filed: 07/05/17 12:56> Date of Encounter: 07/05/17 Time of Encounter: 17:25 Assessment and Plan Discussion w patient/family: The assessment and plan as outlined above was discussed with the patient and/or family members who expressed understanding and agreement. All questions were answered. Thank you for involving us in the care of your patient. Please call with any questions. History of Present Illness History of present illness: Mr. Kendall is a 76 year old male All Systems Review: A 10-system review of systems was performed and is negative for pertinent findings except as documented above in the HPI. Physical Examination Vital Signs, Last 4 Hours Temp Pulse Resp BP Pulse Ox 07/05/17 11:09 15 87/48 92 07/05/17 11:00 97.8 F 82 15 87/48 92 07/05/17 10:53 77 07/05/17 10:00 76 25 88/49 92 07/05/17 09:57 15 89/42 96 07/05/17 09:00 74 15 88/44 95 Results 07/05/17 05:00 07/05/17 05:00 Lab Results 07/04/17 07/04/17 07/05/17 16:47 16:50 00:00 WBC Hgb Hct Plt Count APTT 50.1 H D 72.0 H Sodium Potassium Chloride Carbon Dioxide BUN Creatinine Glucose Calcium Magnesium 1.7 07/05/17 07/05/17 07/05/17 05:00 05:00 06:00 WBC 7.2 Hgb 8.6 L D Hct 28.4 L Plt Count 148 APTT 61.5 H Sodium 140 Potassium 2.9 L Chloride 93 L Carbon Dioxide 41 H* BUN 37 H Creatinine 1.07 Glucose 177 H Calcium 8.8 Magnesium - Attending Attestation Pt seen and examined independently, chart reviewed, old records reviewed, essentially agree with findings as above, my evaluation as follows: CC Shortness of breath, confusion PT is confused, intubated, hx obtained from medical record and pts at bedside. She reports three week hx of increasing shortness of breath, both at rest and with exertion, much more pronounced with exertion. He has refused to weiar nasal O2, has had conversational dyspnea and unable to lie flat. She reports is more confused, has taken medications, but refusing to wear clothes. No complaints of chest pain, palpitations or chest pressure. Pts reports he was much less active last 24 hours prior to admission, was more confused and somnolent, which did not improve with placement of nasal O2. IMP/Plan 1. Elevated troponin: pt found to have mildly elevated troponin on admission, no new complaints of chest pain or pressure, no acute EKG changes, suspect elevation is due to type II myocardial ischemia due to demand ischemia. Not a candidate for invasive evalutation, will obtain echocardiogram to eval LV function and evaluate for pericardial effusion. 2. Metastatic lung cancer, with respiratory failure, on Vent, family discussing how aggresive to be given dismal pronosis 3. Acute on chronic diastolic heart failure, responding slowly to IV diuresis 4. Benign essential hypertension - adequate control on current meds. 5. Hyperlipidemia, on Statin tx, will repeat fasting lipid profile. Additional recommendations pending cardiac imaging, family wishes for continued tx.
[2017-07-04] MEDS ORDERED: *HR* Midazolam HCl 2 MG/2 ML VIAL ONE (16:44)
[2017-07-04] MEDS ORDERED: *HR* Midazolam HCl 2 MG/2 ML VIAL IVP ONE (16:44)
[2017-07-04 17:08] LABS: Magnesium 1.7 mg/dL (1.6-2.6); Phosphorous 4.2 mg/dL (2.3-4.7)
[2017-07-04 17:10] LABS: Ionized Calcium 1.13 mmol/L (1.15-1.35)
[2017-07-04] MEDS ORDERED: NON-FORMULARY MEDICATION 1 EACH EACH (Trospium Chloride [Trospium Chloride] 20 MG) PO SCH (18:00)
[2017-07-04] MEDS: FentaNYL (PF) 1,000 MCG in 0.9 % Sodium Chloride 80 ML IVC SCH (20:24)
[2017-07-05] MEDS: Insulin LISPRO 300 UNITS/3 ML VIAL SQ SCH ×7 (00:03→23:32)
[2017-07-05] MEDS: Lacri-Lube 3.5 GM TUBE BOTH EYES SCH ×7 (00:04→23:35)
[2017-07-05] MEDS: Piperacillin/Tazobactam 3.375 GM in D5% in Water (Mini-Bag+) 100 ML IVPB SCH ×4 (00:07→23:33)
[2017-07-05] MEDS: Ipratropium/Albuterol Neb 3 ML IH SCH ×6 (03:37→23:15)
[2017-07-05] MEDS: FentaNYL (PF) 1,000 MCG in 0.9 % Sodium Chloride 80 ML IVC SCH ×3 (04:25→23:31)
[2017-07-05 05:24] LABS: Eosinophils % 0.3 %; Hematocrit 28.4 % (37.5-50.1); Immature Granulocytes % 0.7 % (0-4); Immature Platelets 2.2 % (1.1-6.1); Lymphocytes # 0.4 K/mcL (0.6-4.6); Lymphocytes % 6.1 %; Mean Corpuscular HGB Conc 30.3 g/dL (31.6-35.5); Mean Corpuscular Hemoglobin 30.7 pg (28.0-33.3); Mean Corpuscular Volume 101.4 fL (83.0-100.0); Mean Platelet Volume 8.9 fL (9.4-12.4); Monocytes # 0.4 K/mcL (0.0-1.3); Monocytes % 5.8 %; Neutrophils # 6.3 K/mcL (1.6-8.9); Platelet Count 148 K/mcL (140-400); Red Cell Distribution Width 16.7 % (11.5-14.5); Segmented Neutrophils % 87.1 %
[2017-07-05 05:35] LABS: Hemoglobin 8.6 g/dL (12.9-16.9)
[2017-07-05 05:50] LABS: BUN/Creatinine Ratio 35 (6-26); Blood Urea Nitrogen 37 mg/dL (8-26); Calcium 8.8 mg/dL (8.6-10.8); Chloride 93 mEq/L (98-109); Glucose 177 mg/dL (70-99); Osmolality,Calculated 303 (280-300); Potassium 2.9 mEq/L (3.5-4.5); Sodium 140 mEq/L (136-145); eGFR For African Americans > 60 (> 60); eGFR For Non-African Americans > 60 (> 60)
[2017-07-05] MEDS: Vancomycin 1,500 MG in D5% in Water 250 ML IVPB SCH ×2 (05:50→17:48)
[2017-07-05 05:56] LABS: Carbon Dioxide 41 mEq/L (19-29)
[2017-07-05] MEDS: Heparin 25,000 UNIT/500 ML D5W 25,000 UNIT/500 ML MLS IVC SCH (06:42)
[2017-07-05] MEDS: Pantoprazole 40 MG VIAL IVP SCH (06:50)
[2017-07-05] MEDS: Levothyroxine 25 MCG TABLET PO SCH (06:50)
[2017-07-05] MEDS: Dexmedetomidine HCl 400 MCG/100 ML MLS IVC SCH ×3 (06:50→23:13)
[2017-07-05] MEDS: Aspirin 81 MG TAB.CHEW PO SCH (07:38)
[2017-07-05] MEDS: Chlorhexidine Rinse 15 ML MOUTHWASH MM SCH ×2 (07:38→21:13)
[2017-07-05] MEDS: Potassium Chloride Elixir 20 MEQ/15 ML UDC PO SCH (07:38)
[2017-07-05] MEDS: amLODIPine 5 MG TABLET PO SCH (07:39)
[2017-07-05] MEDS: hydroCHLOROthiazide 25 MG TABLET PO SCH (07:39)
[2017-07-05] MEDS: Potassium Chloride 40 MEQ/200 ML BAG IVPB PRN ×2 (07:52→15:02)
[2017-07-05] MEDS ORDERED: *HR* Midazolam HCl 2 MG/2 ML VIAL ONE (10:45)
[2017-07-05] MEDS ORDERED: *HR* Midazolam HCl 2 MG/2 ML VIAL IVP ONE (10:46)
[2017-07-05] MEDS: Nystatin SUSP 5 ML UD.LIQ PO SCH ×3 (11:09→21:12)
--- NOTE | 2017-07-05 12:11 | Palliative Progress Note ---
Date of Encounter: 07/05/17 Time of Encounter: 11:15 - Assessment and plan (1) Goals of care, counseling/discussion Current Visit: Yes Status: Acute Assessment and plan: Sons at bedside. to arrive at 2pm and granddaughter arriving from [place] at 6pm this evening. Family to discuss plan for compassionate extubation once everyone arrives. Will likely take place tomorrow. Conducted bedside prayer and provided support. (2) Small cell carcinoma of lung Current Visit: No Status: Acute Qualifiers: Laterality: right Qualified Code(s): C34.91 - Malignant neoplasm of unspecified part of right bronchus or lung - Time Spent With Patient Total time spent is greater than 50% in coordination of care (as documented) at patient's floor/unit and/or counseling patient: less than 15 minutes - Subjective Interval history: Patient intubated and ventilated. Sons at bedside. Conducted bedside prayer and will arrive around 2pm. - Constitutional Vitals: Abnormal lab results RBC 2.80 M/mcL (4.19-5.50) L 07/05/17 05:00 Hgb 8.6 g/dL (12.9-16.9) L D 07/05/17 05:00 Hct 28.4 % (37.5-50.1) L 07/05/17 05:00 MCV 101.4 fL (83.0-100.0) H 07/05/17 05:00 MCHC 30.3 g/dL (31.6-35.5) L 07/05/17 05:00 RDW 16.7 % (11.5-14.5) H 07/05/17 05:00 MPV 8.9 fL (9.4-12.4) L 07/05/17 05:00 Lymphocytes # 0.4 K/mcL (0.6-4.6) L 07/05/17 05:00 Nucleated RBCs/100 WBC 0.2 /100 WBC (0) H 07/04/17 04:15 PT 14.1 Seconds (9.4-12.1) H 07/04/17 11:02 APTT 61.5 Seconds (26.0-36.0) H 07/05/17 06:00 ABG pCO2 68 mmHg (35-45) H 07/04/17 08:15 ABG pO2 61 mmHg (85-104) L 07/04/17 08:15 ABG HCO3 44.1 mEQ/L (21-27) H 07/04/17 08:15 ABG Total CO2 46.2 mEq/L (20-26) H 07/04/17 08:15 ABG O2 Saturation 91 % (95-98) L 07/04/17 08:15 ABG Base Excess 16.9 mEq/L (-2.0 to 3.0) H 07/04/17 08:15 Potassium 2.9 mEq/L (3.5-4.5) L 07/05/17 05:00 Chloride 93 mEq/L (98-109) L 07/05/17 05:00 Carbon Dioxide 41 mEq/L (19-29) H* 07/05/17 05:00 BUN 37 mg/dL (8-26) H 07/05/17 05:00 BUN/Creatinine Ratio 35 (6-26) H 07/05/17 05:00 Glucose 177 mg/dL (70-99) H 07/05/17 05:00 POC Glucose 167 (58-89) H 07/05/17 11:04 Hemoglobin A1c 6.6 % (-5.6) H 07/04/17 04:15 Calculated Osmolality 303 (280-300) H 07/05/17 05:00 Ionized Calcium 1.13 mmol/L (1.15-1.35) L 07/04/17 16:50 Troponin I 0.56 ng/mL (0-0.03) H* 07/04/17 07:50 Albumin 2.7 g/dL (3.5-5.0) L 07/03/17 14:56 Globulin 4.4 g/dL (2.4-3.5) H 07/03/17 14:56 Albumin/Globulin Ratio 0.6 (1.1-2.2) L 07/03/17 14:56 HDL Cholesterol 38 mg/dL (40-59) L 07/04/17 04:15 Urine Protein 30 mg/dL (Neg-Trace) H 07/03/17 16:24 Ur Squamous Epith Cells Many per lpf (None-Few) H 07/03/17 16:24 Urine Opiates Screen Positive ng/mL ([id number]=397) H 07/03/17 16:24 - Head Head exam: Present: atraumatic, normal inspection, normocephalic - Eye Eye exam: Present: PERRL - ENT ENT exam: Present: mucous membranes moist - Respiratory Respiratory exam: Present: decreased breath sounds - Cardiovascular Cardiovascular exam: Present: RRR, +S1, +S2 - GI/Abdominal GI/Abdominal exam: Present: normal bowel sounds, soft - Rectal Rectal exam: Present: deferred - Back Exam Back exam: Present: tenderness - Neurological Exam Neurological exam: Present: altered (sedation) Palliative Quality Palliative Quality: Screen for Code Status: Yes, Screen for Goals of Care: Yes, Screen for Pain: Yes, If Pain Regimen Started, Initiate Bowel Regimen: Yes, Screen for Nausea/Vomitting: Yes Code Status: 07/03/17 20:16 Resuscitation Status: Active [RES] Routine Comment: Resuscitation Status: Full Code Resuscitation Status: Active [RES] Routine Comment: no pressors Resuscitation Status: [id number] - Labs CBC & Chem 7: 07/05/17 05:00 07/05/17 05:00 Labs: Laboratory Results - last 24 hr 07/04/17 07/04/17 07/04/17 15:06 16:47 16:50 WBC RBC Hgb Hct MCV MCH MCHC RDW Plt Count MPV Immature Gran % Seg Neutrophils % Lymphocytes % Monocytes % Eosinophils % Basophils % Neutrophils # Lymphocytes # Monocytes # Eosinophils # Basophils # Immature Plt Fraction APTT 50.1 H D Sodium Potassium Chloride Carbon Dioxide BUN Creatinine Est GFR ( Amer) Est GFR (Non-Af Amer) BUN/Creatinine Ratio Glucose POC Glucose 155 H Calculated Osmolality Calcium Ionized Calcium 1.13 L Phosphorus 4.2 Magnesium 1.7 07/04/17 07/04/17 07/05/17 19:51 23:24 00:00 WBC RBC Hgb Hct MCV MCH MCHC RDW Plt Count MPV Immature Gran % Seg Neutrophils % Lymphocytes % Monocytes % Eosinophils % Basophils % Neutrophils # Lymphocytes # Monocytes # Eosinophils # Basophils # Immature Plt Fraction APTT 72.0 H Sodium Potassium Chloride Carbon Dioxide BUN Creatinine Est GFR ( Amer) Est GFR (Non-Af Amer) BUN/Creatinine Ratio Glucose POC Glucose 165 H 164 H Calculated Osmolality Calcium Ionized Calcium Phosphorus Magnesium 07/05/17 07/05/17 07/05/17 04:42 05:00 05:00 WBC 7.2 RBC 2.80 L Hgb 8.6 L D Hct 28.4 L MCV 101.4 H MCH 30.7 MCHC 30.3 L RDW 16.7 H Plt Count 148 MPV 8.9 L Immature Gran % 0.7 Seg Neutrophils % 87.1 Lymphocytes % 6.1 Monocytes % 5.8 Eosinophils % 0.3 Basophils % 0.0 Neutrophils # 6.3 Lymphocytes # 0.4 L Monocytes # 0.4 Eosinophils # 0.0 Basophils # 0.0 Immature Plt Fraction 2.2 APTT Sodium 140 Potassium 2.9 L Chloride 93 L Carbon Dioxide 41 H* BUN 37 H Creatinine 1.07 Est GFR ( Amer) > 60 Est GFR (Non-Af Amer) > 60 BUN/Creatinine Ratio 35 H Glucose 177 H POC Glucose 179 H Calculated Osmolality 303 H Calcium 8.8 Ionized Calcium Phosphorus Magnesium 07/05/17 07/05/17 07/05/17 06:00 07:14 11:04 WBC RBC Hgb Hct MCV MCH MCHC RDW Plt Count MPV Immature Gran % Seg Neutrophils % Lymphocytes % Monocytes % Eosinophils % Basophils % Neutrophils # Lymphocytes # Monocytes # Eosinophils # Basophils # Immature Plt Fraction APTT 61.5 H Sodium Potassium Chloride Carbon Dioxide BUN Creatinine Est GFR ( Amer) Est GFR (Non-Af Amer) BUN/Creatinine Ratio Glucose POC Glucose 200 H 167 H Calculated Osmolality Calcium Ionized Calcium Phosphorus Magnesium - ABG Interpretation ABG results: ABG ABG pH 7.42 pH Units (7.32-7.45) 07/04/17 08:15 ABG pCO2 68 mmHg (35-45) H 07/04/17 08:15 ABG pO2 61 mmHg (85-104) L 07/04/17 08:15 ABG O2 Saturation 91 % (95-98) L 07/04/17 08:15 PT/INR, D-dimer PT 14.1 Seconds (9.4-12.1) H 07/04/17 11:02 Consult Discharge Plan - Plan Referrals: Byron Mane MD [Primary Care Provider] -
--- NOTE | 2017-07-05 12:45 | Pulmonology Progress Note ---
<Pablo Rogers - Last Filed: 07/05/17 12:58> Date of Encounter: 07/05/17 Time of Encounter: 08:00 Assessment and Plan (1) Acute respiratory failure with hypoxia and hypercarbia Current Visit: No Status: Acute This patient has a significant right pleural effusion that we cannot perform a thoracentesis for due to a high probability of pneumothorax due to how complicated this pleural effusion appears on ultrasound. This patient has continued to be intubated, and has failed CPAP breathing trial. The family states that the patient would not want to be intubated due to his as advancing disease of small cell lung cancer, and is actively awaiting a granddaughter to arrive from [facility] at 1900 in order to extubate. I believe that this is a reasonable plan, and we have continued sedation for the patient with fentanyl and Precedex. For any breakthrough episodes of agitation, I have prescribed Versed 2 mg every 2 hours as needed. This patient's blood pressure is tenuous, but still holding a map of 60. The family has already stated that they do not want to use any pressors in order to increase his blood pressure. Our main goal at this time is to keep this patient comfortable during this transition of terminal extubation. (2) Pleural effusion Current Visit: Yes Status: Acute See above (3) Altered mental status Current Visit: Yes Status: Acute See above Qualifiers: Altered mental status type: disorientation Qualified Code(s): R41.0 - Disorientation, unspecified (4) Small cell lung cancer Current Visit: Yes Status: Chronic See above Qualifiers: Laterality: right Qualified Code(s): C34.91 - Malignant neoplasm of unspecified part of right bronchus or lung (5) Pneumonia Current Visit: Yes Status: Acute See above Qualifiers: Pneumonia type: due to unspecified organism Laterality: right Lung location: unspecified part of lung Qualified Code(s): J18.9 - Pneumonia, unspecified organism (6) Elevated troponin Current Visit: Yes Status: Acute See above (7) DVT prophylaxis Current Visit: Yes Status: Acute See above Subjective Principal diagnosis: Pleural effusion secondary to small cell lung carcinoma Interval history: Patient had no events overnight. Patient is still intubated. Family came in today and is currently waiting on one more member to fly in from [place]. She should be here at 7 PM, and the family is in agreement that at that time the plan is to extubate the patient. Objective PUL Vital signs: Last Vital Signs Temp 97.8 F 07/05/17 11:00 Pulse 74 07/05/17 12:00 Resp 15 07/05/17 12:00 BP 99/52 07/05/17 12:00 Pulse Ox 93 07/05/17 12:00 General appearance: asleep, other (Patient intubated on the ventilator, but does not appear to be agitated at this time. ) Eyes: nonicteric ENT: oropharynx moist Effort: normal Auscultation: right: diminished breath sounds, rales Cardiovascular: regular rate and rhythm Gastrointestinal: normoactive bowel sounds Integumentary: normal Extremities: no cyanosis, no edema, pink and warm, pulses normal, no ischemia or petechiae Musculoskeletal: no deformities unable to assess due to mental status Ventilator Settings Ventilator Settings: Ventilator Settings, Last 8 Hours Ventilator Mode VC+ Ventilator Mode VC+ Ventilator Mode VC+ Ventilator Mode VC+ Ventilator Mode VC+ Ventilator Mode VC+ Ventilator Mode VC+ Ventilator Mode VC+ Ventilator Mode VC+ Ventilator Mode VC+ Ventilator Mode VC+ Ventilator Mode VC+ Ventilator Tidal Volume 500 Setting Ventilator Tidal Volume 500 Setting Ventilator Tidal Volume 500 Setting Ventilator Tidal Volume 500 Setting Ventilator Tidal Volume 500 Setting Ventilator Tidal Volume 500 Setting Ventilator Tidal Volume 500 Setting Ventilator Tidal Volume 500 Setting Ventilator Tidal Volume 500 Setting Ventilator Tidal Volume 500 Setting Ventilator Tidal Volume 500 Setting Ventilator Tidal Volume 500 Setting Ventilator Respiratory Rate 14 Setting Ventilator Respiratory Rate 14 Setting Ventilator Respiratory Rate 14 Setting Ventilator Respiratory Rate 14 Setting Ventilator Respiratory Rate 14 Setting Ventilator Respiratory Rate 14 Setting Ventilator Respiratory Rate 14 Setting Ventilator Respiratory Rate 14 Setting Ventilator Respiratory Rate 14 Setting Ventilator Respiratory Rate 14 Setting Ventilator Respiratory Rate 14 Setting Ventilator Respiratory Rate 14 Setting Actual Respiratory Rate 15 Actual Respiratory Rate 15 Actual Respiratory Rate 15 Actual Respiratory Rate 25 Actual Respiratory Rate 15 Actual Respiratory Rate 15 Actual Respiratory Rate 14 Actual Respiratory Rate 14 Actual Respiratory Rate 14 Actual Respiratory Rate 14 Actual Respiratory Rate 14 Actual Respiratory Rate 14 Positive End Expiratory 8 Pressure Positive End Expiratory 8 Pressure Positive End Expiratory 8 Pressure Positive End Expiratory 8 Pressure Positive End Expiratory 8 Pressure Positive End Expiratory 8 Pressure Positive End Expiratory 8 Pressure Positive End Expiratory 8 Pressure Positive End Expiratory 8 Pressure Positive End Expiratory 8 Pressure Positive End Expiratory 8 Pressure Positive End Expiratory 8 Pressure Peak Inspiratory Airway 24 Pressure Peak Inspiratory Airway 26 Pressure Peak Inspiratory Airway 23 Pressure Peak Inspiratory Airway 26 Pressure Peak Inspiratory Airway 26 Pressure Peak Inspiratory Airway 25 Pressure Peak Inspiratory Airway 29 Pressure Peak Inspiratory Airway 28 Pressure Peak Inspiratory Airway 28 Pressure Peak Inspiratory Airway 27 Pressure Peak Inspiratory Airway 27 Pressure Peak Inspiratory Airway 27 Pressure Results - Laboratory Findings CBC and BMP: 07/05/17 05:00 07/05/17 05:00 ABG ABG pH 7.42 pH Units (7.32-7.45) 07/04/17 08:15 ABG pCO2 68 mmHg (35-45) H 07/04/17 08:15 ABG pO2 61 mmHg (85-104) L 07/04/17 08:15 ABG O2 Saturation 91 % (95-98) L 07/04/17 08:15 PT/INR, D-dimer PT 14.1 Seconds (9.4-12.1) H 07/04/17 11:02 Abnormal lab findings: Abnormal lab results RBC 2.80 M/mcL (4.19-5.50) L 07/05/17 05:00 Hgb 8.6 g/dL (12.9-16.9) L D 07/05/17 05:00 Hct 28.4 % (37.5-50.1) L 07/05/17 05:00 MCV 101.4 fL (83.0-100.0) H 07/05/17 05:00 MCHC 30.3 g/dL (31.6-35.5) L 07/05/17 05:00 RDW 16.7 % (11.5-14.5) H 07/05/17 05:00 MPV 8.9 fL (9.4-12.4) L 07/05/17 05:00 Lymphocytes # 0.4 K/mcL (0.6-4.6) L 07/05/17 05:00 Nucleated RBCs/100 WBC 0.2 /100 WBC (0) H 07/04/17 04:15 PT 14.1 Seconds (9.4-12.1) H 07/04/17 11:02 APTT 61.5 Seconds (26.0-36.0) H 07/05/17 06:00 ABG pCO2 68 mmHg (35-45) H 07/04/17 08:15 ABG pO2 61 mmHg (85-104) L 07/04/17 08:15 ABG HCO3 44.1 mEQ/L (21-27) H 07/04/17 08:15 ABG Total CO2 46.2 mEq/L (20-26) H 07/04/17 08:15 ABG O2 Saturation 91 % (95-98) L 07/04/17 08:15 ABG Base Excess 16.9 mEq/L (-2.0 to 3.0) H 07/04/17 08:15 Potassium 2.9 mEq/L (3.5-4.5) L 07/05/17 05:00 Chloride 93 mEq/L (98-109) L 07/05/17 05:00 Carbon Dioxide 41 mEq/L (19-29) H* 07/05/17 05:00 BUN 37 mg/dL (8-26) H 07/05/17 05:00 BUN/Creatinine Ratio 35 (6-26) H 07/05/17 05:00 Glucose 177 mg/dL (70-99) H 07/05/17 05:00 POC Glucose 167 (58-89) H 07/05/17 11:04 Hemoglobin A1c 6.6 % (-5.6) H 07/04/17 04:15 Calculated Osmolality 303 (280-300) H 07/05/17 05:00 Ionized Calcium 1.13 mmol/L (1.15-1.35) L 07/04/17 16:50 Troponin I 0.56 ng/mL (0-0.03) H* 07/04/17 07:50 Albumin 2.7 g/dL (3.5-5.0) L 07/03/17 14:56 Globulin 4.4 g/dL (2.4-3.5) H 07/03/17 14:56 Albumin/Globulin Ratio 0.6 (1.1-2.2) L 07/03/17 14:56 HDL Cholesterol 38 mg/dL (40-59) L 07/04/17 04:15 Urine Protein 30 mg/dL (Neg-Trace) H 07/03/17 16:24 Ur Squamous Epith Cells Many per lpf (None-Few) H 07/03/17 16:24 Urine Opiates Screen Positive ng/mL (Pygjqn=132) H 07/03/17 16:24 - Clinical Findings Intake & Output: Intake & Output 07/04/17 07/05/17 07/05/17 23:59 07:59 15:59 Intake Total 640 / 640 962 / 962 300 / 300 Output Total 275 / 275 250 / 250 150 / 150 Balance 365 / 365 712 / 712 150 / 150 Weight 100.165 kg Consult Discharge Plan - Plan Referrals: Byron Mane MD [Primary Care Provider] - <PerladomingoDeandre jaimes Yann - Last Filed: 07/05/17 16:32> Date of Encounter: 07/05/17 Objective PUL Vital signs: Last Vital Signs Temp 98.1 F 07/05/17 15:00 Pulse 80 07/05/17 16:00 Resp 14 07/05/17 16:00 BP 106/57 07/05/17 16:00 Pulse Ox 93 07/05/17 16:00 Ventilator Settings Ventilator Settings: Ventilator Settings, Last 8 Hours Ventilator Mode VC+ Ventilator Mode VC+ Ventilator Mode VC+ Ventilator Mode VC+ Ventilator Mode VC+ Ventilator Mode VC+ Ventilator Mode VC+ Ventilator Mode VC+ Ventilator Mode VC+ Ventilator Mode VC+ Ventilator Mode VC+ Ventilator Tidal Volume 500 Setting Ventilator Tidal Volume 500 Setting Ventilator Tidal Volume 500 Setting Ventilator Tidal Volume 500 Setting Ventilator Tidal Volume 500 Setting Ventilator Tidal Volume 500 Setting Ventilator Tidal Volume 500 Setting Ventilator Tidal Volume 500 Setting Ventilator Tidal Volume 500 Setting Ventilator Tidal Volume 500 Setting Ventilator Tidal Volume 500 Setting Ventilator Respiratory Rate 14 Setting Ventilator Respiratory Rate 14 Setting Ventilator Respiratory Rate 14 Setting Ventilator Respiratory Rate 14 Setting Ventilator Respiratory Rate 14 Setting Ventilator Respiratory Rate 14 Setting Ventilator Respiratory Rate 14 Setting Ventilator Respiratory Rate 14 Setting Ventilator Respiratory Rate 14 Setting Ventilator Respiratory Rate 14 Setting Ventilator Respiratory Rate 14 Setting Actual Respiratory Rate 14 Actual Respiratory Rate 15 Actual Respiratory Rate 14 Actual Respiratory Rate 14 Actual Respiratory Rate 18 Actual Respiratory Rate 15 Actual Respiratory Rate 15 Actual Respiratory Rate 15 Actual Respiratory Rate 25 Actual Respiratory Rate 15 Actual Respiratory Rate 15 Positive End Expiratory 8 Pressure Positive End Expiratory 8 Pressure Positive End Expiratory 8 Pressure Positive End Expiratory 8 Pressure Positive End Expiratory 8 Pressure Positive End Expiratory 8 Pressure Positive End Expiratory 8 Pressure Positive End Expiratory 8 Pressure Positive End Expiratory 8 Pressure Positive End Expiratory 8 Pressure Positive End Expiratory 8 Pressure Peak Inspiratory Airway 29 Pressure Peak Inspiratory Airway 29 Pressure Peak Inspiratory Airway 29 Pressure Peak Inspiratory Airway 29 Pressure Peak Inspiratory Airway 21 Pressure Peak Inspiratory Airway 24 Pressure Peak Inspiratory Airway 26 Pressure Peak Inspiratory Airway 23 Pressure Peak Inspiratory Airway 26 Pressure Peak Inspiratory Airway 26 Pressure Peak Inspiratory Airway 25 Pressure Results - Laboratory Findings CBC and BMP: 07/05/17 05:00 07/05/17 13:00 ABG ABG pH 7.42 pH Units (7.32-7.45) 07/04/17 08:15 ABG pCO2 68 mmHg (35-45) H 07/04/17 08:15 ABG pO2 61 mmHg (85-104) L 07/04/17 08:15 ABG O2 Saturation 91 % (95-98) L 07/04/17 08:15 PT/INR, D-dimer PT 14.1 Seconds (9.4-12.1) H 07/04/17 11:02 Abnormal lab findings: Abnormal lab results RBC 2.80 M/mcL (4.19-5.50) L 07/05/17 05:00 Hgb 8.6 g/dL (12.9-16.9) L D 07/05/17 05:00 Hct 28.4 % (37.5-50.1) L 07/05/17 05:00 MCV 101.4 fL (83.0-100.0) H 07/05/17 05:00 MCHC 30.3 g/dL (31.6-35.5) L 07/05/17 05:00 RDW 16.7 % (11.5-14.5) H 07/05/17 05:00 MPV 8.9 fL (9.4-12.4) L 07/05/17 05:00 Lymphocytes # 0.4 K/mcL (0.6-4.6) L 07/05/17 05:00 Nucleated RBCs/100 WBC 0.2 /100 WBC (0) H 07/04/17 04:15 PT 14.1 Seconds (9.4-12.1) H 07/04/17 11:02 APTT 61.5 Seconds (26.0-36.0) H 07/05/17 06:00 ABG pCO2 68 mmHg (35-45) H 07/04/17 08:15 ABG pO2 61 mmHg (85-104) L 07/04/17 08:15 ABG HCO3 44.1 mEQ/L (21-27) H 07/04/17 08:15 ABG Total CO2 46.2 mEq/L (20-26) H 07/04/17 08:15 ABG O2 Saturation 91 % (95-98) L 07/04/17 08:15 ABG Base Excess 16.9 mEq/L (-2.0 to 3.0) H 07/04/17 08:15 Chloride 93 mEq/L (98-109) L 07/05/17 05:00 Carbon Dioxide 41 mEq/L (19-29) H* 07/05/17 05:00 BUN 37 mg/dL (8-26) H 07/05/17 05:00 BUN/Creatinine Ratio 35 (6-26) H 07/05/17 05:00 Glucose 177 mg/dL (70-99) H 07/05/17 05:00 POC Glucose 144 (58-89) H 07/05/17 15:13 Hemoglobin A1c 6.6 % (-5.6) H 07/04/17 04:15 Calculated Osmolality 303 (280-300) H 07/05/17 05:00 Ionized Calcium 1.13 mmol/L (1.15-1.35) L 07/04/17 16:50 Troponin I 0.56 ng/mL (0-0.03) H* 07/04/17 07:50 Albumin 2.7 g/dL (3.5-5.0) L 07/03/17 14:56 Globulin 4.4 g/dL (2.4-3.5) H 07/03/17 14:56 Albumin/Globulin Ratio 0.6 (1.1-2.2) L 07/03/17 14:56 HDL Cholesterol 38 mg/dL (40-59) L 07/04/17 04:15 Urine Protein 30 mg/dL (Neg-Trace) H 07/03/17 16:24 Ur Squamous Epith Cells Many per lpf (None-Few) H 07/03/17 16:24 Urine Opiates Screen Positive ng/mL (Bjkgzt=170) H 07/03/17 16:24 - Clinical Findings Intake & Output: Intake & Output 07/05/17 07/05/17 07/05/17 07:59 15:59 23:59 Intake Total 962 / 962 463 / 463 Output Total 250 / 250 300 / 300 Balance 712 / 712 163 / 163 Weight 100.165 kg - Attending Attestation I examined this patient and my medical decision-making was reviewed with the Resident Physician. I agree with the documented findings, disposition and treatment plan as described except to the extent set forth below. Patient seen and examined. Labs, radiology, chart personally reviewed. Agree with resident's history and physical, assessment, plan with following comments: WAITER/WAITRESS COCKTAIL LOUNGE: Patient is sedated and does not follows commands, Pulmonary: Acceptable oxygenation and ventilation and lower FiO2 to 60%. Still awaiting for the family decision about extubation and further care. Overall poor prognosis and continue comfort care Cardiovascular: stable GI: Nutrition per dietary and GI prophylaxis per routine Heme: DVT prophylaxis per routine ID: Continue antibiotics and plan to de-escalation Renal; urine out put and renal funtion reviewed Endorcine: blood glucose is monitored Lines: all lines checked and no evidence of infections Skin: skin care to prevent pressure ulcers per nursing routine care Palliative care is following as well.
[2017-07-05] MEDS: *HR* Midazolam HCl 2 MG/2 ML VIAL IVP PRN ×2 (13:09→17:17)
[2017-07-05 13:19] LABS: Magnesium 1.7 mg/dL (1.6-2.6); Potassium 3.6 mEq/L (3.5-4.5)
[2017-07-05] MEDS: Magnesium Sulfate 2 GM in D5% in Water 100 ML IVPB PRN (15:01)
--- NOTE | 2017-07-05 15:18 | Cardiology Progress Note ---
Date of Encounter: 07/05/17 Time of Encounter: 11:15 Assessment and Plan (1) Elevated troponin Current Visit: Yes Status: Acute Patient had elevated troponin of 0.36 on arrival, currently at 0.56. Evidence of possible lateral ischemia in V5 and V6 of current EKG when compared to one from 10/29/16. Current CXR shows worsening R pleural effusion with consolidation suggesting PNA. Elevated troponins most likely secondary to PNA. Continue to monitor troponins and telemetry. (2) Diastolic CHF Current Visit: Yes Status: Acute Current echocardiogram shows a LVEF of 60% with mild diastolic dysfunction of LV. BP range in the past 24 hours was 94/42-151/38. Patient currently on amlodipine, lasix, HCTZ, and lisinopril. Continue current treatment. Qualifiers: Qualified Code(s): I50.30 - Unspecified diastolic (congestive) heart failure (3) HTN (hypertension) Current Visit: Yes Status: Chronic Current BP range in past 24 hours was 94/42-151/38. Patient currently on amlodipine, lasix, HCTZ, and lisinopril. Continue current medical regimen. Qualifiers: Hypertension type: essential hypertension Qualified Code(s): I10 - Essential (primary) hypertension (4) HLD (hyperlipidemia) Current Visit: Yes Status: Chronic Continue statin. Qualifiers: Hyperlipidemia type: pure hypercholesterolemia Qualified Code(s): E78.00 - Pure hypercholesterolemia, unspecified; E78.0 - Pure hypercholesterolemia (5) Hypomagnesemia Current Visit: Yes Status: Resolved Magnesium currently at 1.7. Continue to monitor. Discussion w patient/family: The assessment and plan as outlined above was discussed with the patient and/or family members who expressed understanding and agreement. All questions were answered. Thank you for involving us in the care of your patient. Please call with any questions. Subjective Principal diagnosis: Pleural effusion secondary to small cell lung carcinoma Interval history: Primary managing team tried to place the patient on CPAP yesterday, but the patient wasn't able to tolerate it. He is currently on mechanical vent. Family and primary managing team have agreed to extubate the patient later today. Objective Vital Signs, Last 4 Hours Pulse Resp BP Pulse Ox 07/05/17 14:00 73 14 110/51 92 07/05/17 13:00 79 18 151/38 94 07/05/17 12:00 74 15 99/52 93 General: Other (Patient is intubated.) Cardiac: Reg Rate and Rhythm, Normal S1 and S2, No Murmur Lungs: Normal Breath Sounds, No Wheeze, Rales, Rhonchi Extremities: No Clubbing, No Cyanosis, No Edema, Normal Pulses Results 07/05/17 05:00 07/05/17 13:00 Lab Results 07/04/17 07/04/17 07/05/17 16:47 16:50 00:00 WBC Hgb Hct Plt Count APTT 50.1 H D 72.0 H Sodium Potassium Chloride Carbon Dioxide BUN Creatinine Glucose Calcium Magnesium 1.7 07/05/17 07/05/17 07/05/17 05:00 05:00 06:00 WBC 7.2 Hgb 8.6 L D Hct 28.4 L Plt Count 148 APTT 61.5 H Sodium 140 Potassium 2.9 L Chloride 93 L Carbon Dioxide 41 H* BUN 37 H Creatinine 1.07 Glucose 177 H Calcium 8.8 Magnesium 07/05/17 13:00 WBC Hgb Hct Plt Count APTT Sodium Potassium 3.6 Chloride Carbon Dioxide BUN Creatinine Glucose Calcium Magnesium 1.7 Laboratory Tests 07/04/17 07/04/17 04:15 07:50 Troponin I 0.32 H* 0.56 H* Consult Discharge Plan - Plan Referrals: Byron Mane MD [Primary Care Provider] -
[2017-07-05] MEDS ORDERED: Vancomycin 1 EACH in D5% in Water 250 ML IVPB SCH (18:00)
[2017-07-05 23:32] LABS: Magnesium 1.9 mg/dL (1.6-2.6); Potassium 3.9 mEq/L (3.5-4.5)
[2017-07-06] MEDS: Ipratropium/Albuterol Neb 3 ML IH SCH ×3 (03:39→12:20)
[2017-07-06] MEDS: Heparin 25,000 UNIT/500 ML D5W 25,000 UNIT/500 ML MLS IVC SCH (03:59)
[2017-07-06] MEDS: Lacri-Lube 3.5 GM TUBE BOTH EYES SCH ×2 (04:03→08:39)
[2017-07-06 04:05] LABS: Basophils % 0.2 %; Eosinophils % 0.5 %; Hematocrit 27.9 % (37.5-50.1); Hemoglobin 8.5 g/dL (12.9-16.9); Immature Granulocytes % 1.1 % (0-4); Lymphocytes # 0.4 K/mcL (0.6-4.6); Lymphocytes % 5.9 %; Mean Corpuscular HGB Conc 30.5 g/dL (31.6-35.5); Mean Corpuscular Hemoglobin 30.6 pg (28.0-33.3); Mean Corpuscular Volume 100.4 fL (83.0-100.0); Mean Platelet Volume 8.9 fL (9.4-12.4); Monocytes # 0.4 K/mcL (0.0-1.3); Monocytes % 6.5 %; Neutrophils # 5.7 K/mcL (1.6-8.9); Platelet Count 120 K/mcL (140-400); Red Blood Count 2.78 M/mcL (4.19-5.50); Red Cell Distribution Width 16.6 % (11.5-14.5); Segmented Neutrophils % 85.8 %
[2017-07-06 04:18] LABS: BUN/Creatinine Ratio 29 (6-26); Blood Urea Nitrogen 36 mg/dL (8-26); Calcium 8.7 mg/dL (8.6-10.8); Carbon Dioxide 34 mEq/L (19-29); Chloride 95 mEq/L (98-109); Glucose 193 mg/dL (70-99); Osmolality,Calculated 302 (280-300); Potassium 3.7 mEq/L (3.5-4.5); Sodium 139 mEq/L (136-145); eGFR For African Americans > 60 (> 60); eGFR For Non-African Americans 57 (> 60)
[2017-07-06] MEDS: Magnesium Sulfate 2 GM in D5% in Water 100 ML IVPB PRN (04:35)
[2017-07-06] MEDS: Potassium Chloride 40 MEQ/200 ML BAG IVPB PRN (04:36)
[2017-07-06] MEDS: Insulin LISPRO 300 UNITS/3 ML VIAL SQ SCH ×2 (04:38→08:39)
[2017-07-06] MEDS: Pantoprazole 40 MG VIAL IVP SCH (06:01)
[2017-07-06] MEDS: Levothyroxine 25 MCG TABLET PO SCH (06:01)
[2017-07-06] MEDS: Dexmedetomidine HCl 400 MCG/100 ML MLS IVC SCH (06:46)
--- NOTE | 2017-07-06 08:27 | Pulmonology Progress Note ---
Date of Encounter: 07/06/17 Time of Encounter: 08:24 Assessment and Plan (1) Acute respiratory failure with hypoxia and hypercarbia Current Visit: No Status: Acute This patient has a significant right pleural effusion that we cannot perform a thoracentesis for due to a high probability of pneumothorax due to how complicated this pleural effusion appears on ultrasound. This patient has continued to be intubated, and has increased demands for oxygenation on the ventilator. The family states that the patient would not want to be intubated due to his advancing disease of small cell lung cancer, and plans to request that we extubate the patient at 1100 today. I believe that this is a reasonable plan, and we have continued sedation for the patient with fentanyl and Precedex. For any breakthrough episodes of agitation, I have prescribed Versed 2 mg every 2 hours as needed. This patient's blood pressure is tenuous, but still holding a map of 60. The family has already stated that they do not want to use any pressors in order to increase his blood pressure. Our main goal at this time is to keep this patient comfortable during this transition of terminal extubation. We plan on getting him a palliative bed after extubation. (2) Pleural effusion Current Visit: Yes Status: Acute See above (3) Altered mental status Current Visit: Yes Status: Acute See above (4) Small cell lung cancer Current Visit: Yes Status: Chronic See above Qualifiers: Laterality: right Qualified Code(s): C34.91 - Malignant neoplasm of unspecified part of right bronchus or lung (5) Pneumonia Current Visit: Yes Status: Acute See above Qualifiers: Pneumonia type: due to unspecified organism Laterality: right Lung location: unspecified part of lung Qualified Code(s): J18.9 - Pneumonia, unspecified organism (6) Elevated troponin Current Visit: Yes Status: Acute See above (7) DVT prophylaxis Current Visit: Yes Status: Acute See above Subjective Principal diagnosis: Pleural effusion secondary to small cell lung carcinoma Interval history: Patient's oxygen saturation dropped down overnight with an FiO2 of 60. We have increased his FiO2 to 70. Patient is still intubated. Family came in yesterday and decided that they were planning to extubate at 11 AM today. Objective PUL Vital signs: Last Vital Signs Temp 97.6 F 07/06/17 08:00 Pulse 83 07/06/17 07:00 Resp 14 07/06/17 07:29 BP 111/42 07/06/17 07:29 Pulse Ox 98 07/06/17 07:29 General appearance: asleep, other (Appears comfortable and sedated) Eyes: nonicteric ENT: oropharynx moist Neck: supple Effort: other (Intubated on the vent) Auscultation: right: diminished breath sounds, rales Cardiovascular: regular rate and rhythm Gastrointestinal: normoactive bowel sounds Integumentary: normal Extremities: no edema, pink and warm, pulses normal, no ischemia or petechiae unable to assess due to mental status (Sedated on the vent) Ventilator Settings Ventilator Settings: Ventilator Settings, Last 8 Hours Ventilator Mode VC+ Ventilator Mode VC+ Ventilator Mode VC+ Ventilator Mode VC+ Ventilator Mode VC+ Ventilator Mode VC+ Ventilator Mode VC+ Ventilator Mode VC+ Ventilator Tidal Volume 500 Setting Ventilator Tidal Volume 500 Setting Ventilator Tidal Volume 500 Setting Ventilator Tidal Volume 500 Setting Ventilator Tidal Volume 500 Setting Ventilator Tidal Volume 500 Setting Ventilator Tidal Volume 500 Setting Ventilator Tidal Volume 500 Setting Ventilator Respiratory Rate 14 Setting Ventilator Respiratory Rate 14 Setting Ventilator Respiratory Rate 14 Setting Ventilator Respiratory Rate 14 Setting Ventilator Respiratory Rate 14 Setting Ventilator Respiratory Rate 14 Setting Ventilator Respiratory Rate 14 Setting Ventilator Respiratory Rate 14 Setting Actual Respiratory Rate 14 Actual Respiratory Rate 14 Actual Respiratory Rate 14 Actual Respiratory Rate 15 Actual Respiratory Rate 15 Actual Respiratory Rate 14 Actual Respiratory Rate 14 Actual Respiratory Rate 14 Positive End Expiratory 8 Pressure Positive End Expiratory 8 Pressure Positive End Expiratory 8 Pressure Positive End Expiratory 8 Pressure Positive End Expiratory 8 Pressure Positive End Expiratory 8 Pressure Positive End Expiratory 8 Pressure Positive End Expiratory 8 Pressure Peak Inspiratory Airway 26 Pressure Peak Inspiratory Airway 27 Pressure Peak Inspiratory Airway 26 Pressure Peak Inspiratory Airway 23 Pressure Peak Inspiratory Airway 23 Pressure Peak Inspiratory Airway 25 Pressure Peak Inspiratory Airway 25 Pressure Peak Inspiratory Airway 27 Pressure Results - Laboratory Findings CBC and BMP: 07/06/17 03:55 07/06/17 03:55 ABG ABG pH 7.42 pH Units (7.32-7.45) 07/04/17 08:15 ABG pCO2 68 mmHg (35-45) H 07/04/17 08:15 ABG pO2 61 mmHg (85-104) L 07/04/17 08:15 ABG O2 Saturation 91 % (95-98) L 07/04/17 08:15 PT/INR, D-dimer PT 14.1 Seconds (9.4-12.1) H 07/04/17 11:02 Abnormal lab findings: Abnormal lab results RBC 2.78 M/mcL (4.19-5.50) L 07/06/17 03:55 Hgb 8.5 g/dL (12.9-16.9) L 07/06/17 03:55 Hct 27.9 % (37.5-50.1) L 07/06/17 03:55 MCV 100.4 fL (83.0-100.0) H 07/06/17 03:55 MCHC 30.5 g/dL (31.6-35.5) L 07/06/17 03:55 RDW 16.6 % (11.5-14.5) H 07/06/17 03:55 Plt Count 120 K/mcL (140-400) L 07/06/17 03:55 MPV 8.9 fL (9.4-12.4) L 07/06/17 03:55 Lymphocytes # 0.4 K/mcL (0.6-4.6) L 07/06/17 03:55 Nucleated RBCs/100 WBC 0.2 /100 WBC (0) H 07/04/17 04:15 PT 14.1 Seconds (9.4-12.1) H 07/04/17 11:02 APTT 70.2 Seconds (26.0-36.0) H 07/06/17 03:55 ABG pCO2 68 mmHg (35-45) H 07/04/17 08:15 ABG pO2 61 mmHg (85-104) L 07/04/17 08:15 ABG HCO3 44.1 mEQ/L (21-27) H 07/04/17 08:15 ABG Total CO2 46.2 mEq/L (20-26) H 07/04/17 08:15 ABG O2 Saturation 91 % (95-98) L 07/04/17 08:15 ABG Base Excess 16.9 mEq/L (-2.0 to 3.0) H 07/04/17 08:15 Chloride 95 mEq/L (98-109) L 07/06/17 03:55 Carbon Dioxide 34 mEq/L (19-29) H 07/06/17 03:55 BUN 36 mg/dL (8-26) H 07/06/17 03:55 Est GFR (Non-Af Amer) 57 (> 60) L 07/06/17 03:55 BUN/Creatinine Ratio 29 (6-26) H 07/06/17 03:55 Glucose 193 mg/dL (70-99) H 07/06/17 03:55 POC Glucose 188 (58-89) H 07/06/17 07:45 Hemoglobin A1c 6.6 % (-5.6) H 07/04/17 04:15 Calculated Osmolality 302 (280-300) H 07/06/17 03:55 Ionized Calcium 1.13 mmol/L (1.15-1.35) L 07/04/17 16:50 Troponin I 0.56 ng/mL (0-0.03) H* 07/04/17 07:50 Albumin 2.7 g/dL (3.5-5.0) L 07/03/17 14:56 Globulin 4.4 g/dL (2.4-3.5) H 07/03/17 14:56 Albumin/Globulin Ratio 0.6 (1.1-2.2) L 07/03/17 14:56 HDL Cholesterol 38 mg/dL (40-59) L 07/04/17 04:15 Urine Protein 30 mg/dL (Neg-Trace) H 07/03/17 16:24 Ur Squamous Epith Cells Many per lpf (None-Few) H 07/03/17 16:24 Vancomycin Trough 26.6 mcg/mL (10-20) H* 07/05/17 17:15 Urine Opiates Screen Positive ng/mL (Adsiib=112) H 07/03/17 16:24 - Clinical Findings Intake & Output: Intake & Output 07/05/17 07/06/17 07/06/17 23:59 07:59 15:59 Intake Total 604 / 604 1010.5 / 1010.5 Output Total 250 / 250 100 / 100 250 / 250 Balance 354 / 354 910.5 / 910.5 -250 / -250 Weight 102.625 kg Consult Discharge Plan - Plan Referrals: Byron Mane MD [Primary Care Provider] -
[2017-07-06] MEDS: Aspirin 81 MG TAB.CHEW PO SCH (08:28)
[2017-07-06] MEDS: Piperacillin/Tazobactam 3.375 GM in D5% in Water (Mini-Bag+) 100 ML IVPB SCH (08:28)
[2017-07-06] MEDS: Chlorhexidine Rinse 15 ML MOUTHWASH MM SCH (08:28)
[2017-07-06] MEDS: Nystatin SUSP 5 ML UD.LIQ PO SCH (08:28)
[2017-07-06] MEDS: FentaNYL (PF) 1,000 MCG in 0.9 % Sodium Chloride 80 ML IVC SCH (08:44)
[2017-07-06] MEDS ORDERED: *HR* LORazepam 2 MG/ML VIAL IVP PRN (10:30)
[2017-07-06] MEDS ORDERED: Atropine Sulfate 1% 40 DROP/2 ML BOTTLE SL PRN (10:31)
[2017-07-06 12:06] VITALS: BP 113/47
[2017-07-06] MEDS ORDERED: *HR* Morphine 2 MG/ML SYRINGE ONE (12:11)
[2017-07-06] MEDS ORDERED: *HR* LORazepam 2 MG/ML VIAL ONE (12:14)
[2017-07-06] MEDS ORDERED: *HR* Morphine 2 MG/ML SYRINGE IVP ONE (12:17)
[2017-07-06] MEDS ORDERED: *HR* LORazepam 2 MG/ML VIAL IVP ONE (12:18)
--- NOTE | 2017-07-06 12:28 | Palliative Progress Note ---
Date of Encounter: 07/06/17 Time of Encounter: 12:00 - Assessment and plan (1) Dyspnea Current Visit: No Status: Acute Assessment and plan: Will continue Fentanyl drip for now. If stabilizes after extubation, will begin Morphine drip.. Oxygen for comfort Qualifiers: Dyspnea type: unspecified Qualified Code(s): R06.00 - Dyspnea, unspecified (2) Restlessness and agitation Current Visit: Yes Status: Acute Assessment and plan: Remains on Precedex infusion. Will have Lorazepam available IV PRN and monitor (3) Airway clearance impairment Current Visit: Yes Status: Acute Assessment and plan: + upper airway secretions. Will begin scopolamine patch, and Atropine drops SL PRN. Gentle suctioning if necessary (4) Counseling regarding advanced care planning and goals of care Current Visit: Yes Status: Acute Assessment and plan: Family here and ready for compassionate extubation. Provided emotional support. Will follow closely and assist with symptom management. If stable after extubation, may transfer to palliative bed under hospitalist service. D/ W Dr. Rogers and primary nurse Erlinda. - Time Spent With Patient Total time spent is greater than 50% in coordination of care (as documented) at patient's floor/unit and/or counseling patient: 25 - 35 minutes - Subjective Interval history: Patient restless on ventilator. Family at bedside, desiring extubation. . - Constitutional Vitals: Abnormal lab results RBC 2.78 M/mcL (4.19-5.50) L 07/06/17 03:55 Hgb 8.5 g/dL (12.9-16.9) L 07/06/17 03:55 Hct 27.9 % (37.5-50.1) L 07/06/17 03:55 MCV 100.4 fL (83.0-100.0) H 07/06/17 03:55 MCHC 30.5 g/dL (31.6-35.5) L 07/06/17 03:55 RDW 16.6 % (11.5-14.5) H 07/06/17 03:55 Plt Count 120 K/mcL (140-400) L 07/06/17 03:55 MPV 8.9 fL (9.4-12.4) L 07/06/17 03:55 Lymphocytes # 0.4 K/mcL (0.6-4.6) L 07/06/17 03:55 Nucleated RBCs/100 WBC 0.2 /100 WBC (0) H 07/04/17 04:15 PT 14.1 Seconds (9.4-12.1) H 07/04/17 11:02 APTT 70.2 Seconds (26.0-36.0) H 07/06/17 03:55 ABG pCO2 68 mmHg (35-45) H 07/04/17 08:15 ABG pO2 61 mmHg (85-104) L 07/04/17 08:15 ABG HCO3 44.1 mEQ/L (21-27) H 07/04/17 08:15 ABG Total CO2 46.2 mEq/L (20-26) H 07/04/17 08:15 ABG O2 Saturation 91 % (95-98) L 07/04/17 08:15 ABG Base Excess 16.9 mEq/L (-2.0 to 3.0) H 07/04/17 08:15 Chloride 95 mEq/L (98-109) L 07/06/17 03:55 Carbon Dioxide 34 mEq/L (19-29) H 07/06/17 03:55 BUN 36 mg/dL (8-26) H 07/06/17 03:55 Est GFR (Non-Af Amer) 57 (> 60) L 07/06/17 03:55 BUN/Creatinine Ratio 29 (6-26) H 07/06/17 03:55 Glucose 193 mg/dL (70-99) H 07/06/17 03:55 POC Glucose 188 (58-89) H 07/06/17 07:45 Hemoglobin A1c 6.6 % (-5.6) H 07/04/17 04:15 Calculated Osmolality 302 (280-300) H 07/06/17 03:55 Ionized Calcium 1.13 mmol/L (1.15-1.35) L 07/04/17 16:50 Troponin I 0.56 ng/mL (0-0.03) H* 07/04/17 07:50 Albumin 2.7 g/dL (3.5-5.0) L 07/03/17 14:56 Globulin 4.4 g/dL (2.4-3.5) H 07/03/17 14:56 Albumin/Globulin Ratio 0.6 (1.1-2.2) L 07/03/17 14:56 HDL Cholesterol 38 mg/dL (40-59) L 07/04/17 04:15 Urine Protein 30 mg/dL (Neg-Trace) H 07/03/17 16:24 Ur Squamous Epith Cells Many per lpf (None-Few) H 07/03/17 16:24 Vancomycin Trough 26.6 mcg/mL (10-20) H* 07/05/17 17:15 Urine Opiates Screen Positive ng/mL (Svmguo=213) H 07/03/17 16:24 General appearance: Present: mild distress - Respiratory Additional comments: Rhonchi throughout. Remains at 70% FIO2 on vent - Cardiovascular Cardiovascular exam: Present: tachycardia - GI/Abdominal GI/Abdominal exam: Present: normal bowel sounds, soft - Additional comments: yates with clear yellow urine - Extremities Exam Additional comments: Bilateral lower extremities cool to touch - Neurological Exam Additional comments: Eyes open, restless - Skin Skin exam: Present: dry, pallor, warm Palliative Quality Palliative Quality: Screen for Code Status: Yes, Screen for Goals of Care: Yes, Screen for Pain: Yes, If Pain Regimen Started, Initiate Bowel Regimen: Yes, Screen for Nausea/Vomitting: Yes Code Status: 07/03/17 20:16 Resuscitation Status: Active [RES] Routine Comment: Resuscitation Status: Full Code Resuscitation Status: Active [RES] Routine Comment: no pressors Resuscitation Status: [id number] 07/06/17 10:52 DNR [Resuscitation Status: Active] [RES] Routine Comment: Resuscitation Status: DNR-Comfort Care - Labs CBC & Chem 7: 07/06/17 03:55 07/06/17 03:55 Labs: Laboratory Results - last 24 hr 07/05/17 07/05/17 07/05/17 13:00 15:13 17:15 WBC RBC Hgb Hct MCV MCH MCHC RDW Plt Count MPV Immature Gran % Seg Neutrophils % Lymphocytes % Monocytes % Eosinophils % Basophils % Neutrophils # Lymphocytes # Monocytes # Eosinophils # Basophils # APTT Sodium Potassium 3.6 Chloride Carbon Dioxide BUN Creatinine Est GFR ( Amer) Est GFR (Non-Af Amer) BUN/Creatinine Ratio Glucose POC Glucose 144 H Calculated Osmolality Calcium Magnesium 1.7 Vancomycin Trough 26.6 H* Random Vancomycin 07/05/17 07/05/17 07/05/17 19:42 23:00 23:26 WBC RBC Hgb Hct MCV MCH MCHC RDW Plt Count MPV Immature Gran % Seg Neutrophils % Lymphocytes % Monocytes % Eosinophils % Basophils % Neutrophils # Lymphocytes # Monocytes # Eosinophils # Basophils # APTT Sodium Potassium 3.9 Chloride Carbon Dioxide BUN Creatinine Est GFR ( Amer) Est GFR (Non-Af Amer) BUN/Creatinine Ratio Glucose POC Glucose 150 H 133 H Calculated Osmolality Calcium Magnesium 1.9 Vancomycin Trough Random Vancomycin 07/06/17 07/06/17 07/06/17 03:55 03:55 03:55 WBC 6.6 RBC 2.78 L Hgb 8.5 L Hct 27.9 L MCV 100.4 H MCH 30.6 MCHC 30.5 L RDW 16.6 H Plt Count 120 L MPV 8.9 L Immature Gran % 1.1 Seg Neutrophils % 85.8 Lymphocytes % 5.9 Monocytes % 6.5 Eosinophils % 0.5 Basophils % 0.2 Neutrophils # 5.7 Lymphocytes # 0.4 L Monocytes # 0.4 Eosinophils # 0.0 Basophils # 0.0 APTT 70.2 H Sodium 139 Potassium 3.7 Chloride 95 L Carbon Dioxide 34 H BUN 36 H Creatinine 1.23 Est GFR ( Amer) > 60 Est GFR (Non-Af Amer) 57 L BUN/Creatinine Ratio 29 H Glucose 193 H POC Glucose Calculated Osmolality 302 H Calcium 8.7 Magnesium Vancomycin Trough Random Vancomycin 07/06/17 07/06/17 07/06/17 03:55 03:55 04:31 WBC RBC Hgb Hct MCV MCH MCHC RDW Plt Count MPV Immature Gran % Seg Neutrophils % Lymphocytes % Monocytes % Eosinophils % Basophils % Neutrophils # Lymphocytes # Monocytes # Eosinophils # Basophils # APTT Sodium Potassium Chloride Carbon Dioxide BUN Creatinine Est GFR ( Amer) Est GFR (Non-Af Amer) BUN/Creatinine Ratio Glucose POC Glucose 191 H Calculated Osmolality Calcium Magnesium 1.8 Vancomycin Trough Random Vancomycin 18.2 07/06/17 07:45 WBC RBC Hgb Hct MCV MCH MCHC RDW Plt Count MPV Immature Gran % Seg Neutrophils % Lymphocytes % Monocytes % Eosinophils % Basophils % Neutrophils # Lymphocytes # Monocytes # Eosinophils # Basophils # APTT Sodium Potassium Chloride Carbon Dioxide BUN Creatinine Est GFR ( Amer) Est GFR (Non-Af Amer) BUN/Creatinine Ratio Glucose POC Glucose 188 H Calculated Osmolality Calcium Magnesium Vancomycin Trough Random Vancomycin - ABG Interpretation ABG results: ABG ABG pH 7.42 pH Units (7.32-7.45) 07/04/17 08:15 ABG pCO2 68 mmHg (35-45) H 07/04/17 08:15 ABG pO2 61 mmHg (85-104) L 07/04/17 08:15 ABG O2 Saturation 91 % (95-98) L 07/04/17 08:15 PT/INR, D-dimer PT 14.1 Seconds (9.4-12.1) H 07/04/17 11:02 Consult Discharge Plan - Plan Referrals: Byron Mane MD [Primary Care Provider] -
[2017-07-06] MEDS ORDERED: Scopolamine Patch 1.5 MG PATCH.TD72 TD SCH (12:30)
[2017-07-06] MEDS ORDERED: *HR* Morphine 2 MG/ML SYRINGE IVP PRN (12:41)
--- NOTE | 2017-07-06 14:08 | Death Note ---
<Pablo Rogers - Last Filed: 07/06/17 14:05> Pronouncement Note - Date and Time of Date of : 07/06/17 Time of : 13:33 - PCOD Preliminary cause of : Respiratory arrest - Additional Data Confirmation of : no pulse, no respirations, no heart sounds, pupils fixed and dilated Family: at bedside Attending/PCP notified?: Yes Attending physician: Deandre Issa MD <Deandre Issa - Last Filed: 07/06/17 15:07> Pronouncement Note - Additional Data Attending physician: Celestine Ge MD
[2017-07-06] MEDS ORDERED: Aminoglycoside Consult 1 EACH MC ONE (14:29)
--- NOTE | 2017-07-06 15:09 | Death Note ---
<Pablo Rogers - Last Filed: 07/06/17 15:11> Discharge Sum: Summary - Date and Time Date of admission: 07/03/17 18:35 - Additional Data Attending physician: Celestien Ge MD Discharge Sum: Diag - PCOD Probable Cause of : Respiratory arrest Discharge Sum: Prov - Provider Primary care physician: Byron Mane MD Admitting clinician: Coty Escoto Attending physician on admission: Deandre Issa Consults: 07/03/17 20:19 Consult to Beverage Inspection Machine Tender [CONS] Routine Reason for SW Consult: Patient's and son would like to discuss POA designation and they have questions that need addressed. Son will be back at 4 p.m. tomorrow and would like to be present for this discussion. 07/03/17 21:51 Consult to Nutrition [CONS] Routine Comment: Consulting Provider: NUTRITION Reason for Dietary Consult: MST Score 07/04/17 03:08 Consult to Critical Care [CONS] Routine Consulting Provider: Pulm Crit Care & Sleep [facility] Reason for Consult: Pt has progressive hypoxia, has to be intubated. Call Completed: Yes 07/04/17 07:03 Consult to Palliative Care [CONS] Routine Comment: Consulting Provider: Palliative Care [facility] Reason for Consult: Lung Cancer Call Completed: No Pronouncing clinician: Pablo Rogers (Attending: Deandre Issa MD) <Deandre Issa - Last Filed: 07/06/17 22:04> Discharge Sum: Summary - Date and Time Date of admission: 07/03/17 18:35 Date of : 07/06/17 - Additional Data Attending physician: Celestine Ge MD Discharge Sum: Prov - Provider Primary care physician: Byron Mane MD Consults: 07/03/17 20:19 Consult to Beverage Inspection Machine Tender [CONS] Routine Reason for SW Consult: Patient's and son would like to discuss POA designation and they have questions that need addressed. Son will be back at 4 p.m. tomorrow and would like to be present for this discussion. 07/03/17 21:51 Consult to Nutrition [CONS] Routine Comment: Consulting Provider: NUTRITION Reason for Dietary Consult: MST Score 07/04/17 03:08 Consult to Critical Care [CONS] Routine Consulting Provider: Pulm Crit Care & Sleep [facility] Reason for Consult: Pt has progressive hypoxia, has to be intubated. Call Completed: Yes 07/04/17 07:03 Consult to Palliative Care [CONS] Routine Comment: Consulting Provider: Palliative Care [facility]ah Reason for Consult: Lung Cancer Call Completed: No - Attending Attestation I examined this patient and my medical decision-making was reviewed with the Resident Physician. I agree with the documented findings, disposition and treatment plan as described except to the extent set forth below. 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 After extubation patient and family at bedside.
== END 2017-07-06 14:30 | disposition expired | DRG 208 ==
LOC: EMEROO 14:26 → 2ANU 18:35 → ICNU 07-04 02:33
PROVIDERS: ADMIT Registered Nurse; ATTEND Internal Medicine